=== PATIENT | female | born 1985 | race Caucasian/White ===

== ENCOUNTER 2017-12-30 17:04 | Emergency (ER) | payer SELFPAY ==
[~2017-12-30 17:04] MED LIST: Iopamidol 370 76% 100 ML VIAL ONE
[2017-12-30 17:29] LABS: Bilirubin Small (Negative); Blood, Urine Moderate (Negative); Clarity Cloudy (Clear); Glucose, Urine (Dipstick) Negative (Negative); Leukocyte Negative (Negative); Nitrite Negative (Negative); Protein, Urine (Dipstick) 100 mg/dL (Neg-Trace); pH, Urine 6.5 (5.0-9.0)
[2017-12-30 17:30] LABS: Specific Gravity, Urine Greater than 1.035 (1.002-1.036)
[2017-12-30 17:35] LABS: RBC/HPF 21-50 HPF (0-3)
[2017-12-30 17:36] LABS: Bacteria/HPF 1+ HPF (None Seen); Crystals/HPF 1+ CA OXALATE HPF (Negative); Hyaline Casts/LPF 0-3 HYALINE CAST LPF (0-3 Hyaline)
[2017-12-30] MEDS ORDERED: Ondansetron HCl/PF 4 MG/2 ML Vial ONE (17:58)
[2017-12-30 18:05] LABS: #Basophils 0.1 thou/uL (0.0-0.2); #Eosinphils 0.2 thou/uL (0.0-0.7); #Lymphocytes 2.1 thou/uL (1.20-3.40); #Monocytes 0.4 thou/uL (0.11-0.59); #Neutrophils 5.8 thou/uL (1.40-6.50); %Basophils 1.3 % (0.0-1.0); %Eosinophils 2.7 % (0.0-10.0); %Lymphocytes 23.8 % (21.0-51.0); %Monocytes 4.9 % (0.0-10.0); %Neutrophils 67.3 % (42.0-75.0); Hemoglobin 11.5 g/dL (12.0-16.0); Mean Corpuscular HGB CONC 34.9 g/dL (32.0-36.0); Mean Corpuscular Hemoglobin 29.8 pg (27.0-31.0); Mean Corpuscular Volume 85.5 fl (81.0-99.0); Mean Platelet Volume 7.8 fL (7.4-10.4); Platelet Count 204 thou/uL (130-400); Red Blood Cell (RBC) Count 3.87 mill/uL (4.20-5.40); White Blood Cell (WBC) Count 8.7 thou/uL (4.8-10.8)
[2017-12-30 18:11] LABS: BHCG - Serum Negative (NEGATIVE); Pregs Control Background? CLEAR/WHITE (CLR/WHITE); Pregs Control Bar Appear? YES (CONTROL BAR)
[2017-12-30 18:21] LABS: ALT (SGPT) 23 U/L (8-55); AST (SGOT) 24 U/L (5-34); Albumin 3.9 g/dL (3.5-5.0); Alkaline Phosphatase 100 U/L (40-150); Anion Gap 13 mmol/L (10-20); BUN (Urea Nitrogen) 12 mg/dL (7.0-18.7); Bilirubin, Total 0.2 mg/dL (0.2-1.2); Calc. Creatinine Clearance 0 mL/min (70-130); Calcium 9.1 mg/dL (7.8-10.44); Carbon Dioxide 21 mmol/L (22-29); Chloride 109 mmol/L (98-107); Estimated GFR-MDRD Greater than 90; Globulin 3.2 g/dL (2.4-3.5); Glucose 88 mg/dL (70-105); Lipase 72 U/L (8-78); Potassium 3.3 mmol/L (3.5-5.1); Protein, Total 7.1 g/dL (6.0-8.3); Sodium 140 mmol/L (136-145)
[2017-12-30] MEDS ORDERED: Pot Chloride/Pot Bicarb/Cit Ac 25 mEq Effervescent Tablet ONE (19:17)
[2017-12-30] MEDS ORDERED: Ketorolac Tromethamine 30 MG/ML VIAL ONE (20:26)
--- NOTE | 2017-12-30 21:07 | CT ---
CT ABDOMEN AND PELVIS WITH IV CONTRAST: INDICATIONS: History of left upper quadrant abdominal pain since last night. COMPARISON: 06/27/2014 FINDINGS: The lung bases are clear. The liver and spleen appear within normal limits. The gallbladder is surgically absent. The pancreas and adrenal glands are normal appearing. There is slight prominence of the right renal collecting system and right ureter. No definite ureter al stone is evident. There are scattered small phleboliths within the lower pelvis, which are simila r to a comparison dated 06/18/2015. No definite acute osseous abnormality is evident. IMPRESSION: Mild nonspecific right hydronephrosis and hydroureter without a visible ureteral stone. Findings may reflect a recently passed stone or possibly ascending urinary tract infection. Recommend correlatio n with clinical examination and laboratory evaluation. POS: [facility]
== END 2017-12-30 20:32 | disposition home or self-care (01) ==
LOC: SCSCT 17:04 → SCSER 17:04
DX: R10.12 Left upper quadrant pain (principal); R10.32 Left lower quadrant pain; R31.9 Hematuria, unspecified; K21.9 Gastro-esophageal reflux disease without esophagitis; D64.9 Anemia, unspecified
CPT/HCPCS: 74177; 80053; 81003; 81015; 83605; 83690; 84703; 85025; 87086; 96361; 96365; 96375; J1885; J2405

== ENCOUNTER 2018-11-17 09:29 | Emergency (ER) | payer BC, SELFPAY ==
[2018-11-17] MEDS ORDERED: Iopamidol 370 76% 50 ML VIAL FS ONE (10:00)
[2018-11-17] MEDS ORDERED: ISOVUE-370 76%-LOCM 1 ML ONE (10:00)
[2018-11-17] MEDS ORDERED: HYDROmorphone 0.5 MG/0.5 ML SYRINGE ONE (10:32)
[2018-11-17 10:45] LABS: Bilirubin Negative (Negative); Blood, Urine Small (Negative); Clarity CLEAR (Clear); Glucose, Urine (Dipstick) Negative (Negative); Leukocyte Negative (Negative); Nitrite Negative (Negative); Protein, Urine (Dipstick) Trace mg/dL (Neg-Trace); Specific Gravity, Urine 1.022 (1.002-1.036); Urobilinogen 0.2 mg/dL (0.2-1.0)
[2018-11-17] MEDS ORDERED: Ondansetron PF 4 MG/2 ML Vial ONE (10:47)
[2018-11-17 10:48] LABS: Bacteria/HPF None Seen HPF (None Seen); Hyaline Casts/LPF 4-6 HYALINE CAST LPF (0-3 Hyaline); Pathc Cast-AUWi Flag 0.87 (0-2.49); Squamous Epithelial 0-3 HPF (0-3); WBC/HPF 0-3 HPF (0-3)
--- NOTE | 2018-11-17 12:35 | CT ---
CT ABDOMEN AND PELVIS WITH CONTRAST: HISTORY: Back pain. Nausea and vomiting. COMPARISON: CT abdomen and pelvis from 12/30/2017. FINDINGS: The lung bases are clear. No pericardial effusion. Renal pelvic dilatation, similar to the comparison examination, without dilatation of the ureters. P unctate phleboliths in the pelvis, similar to the prior examination. There is no nephroureterolithia sis. No acute osseous abnormality. There are no dilated loops of large or small bowel. There appears to be a prior colectomy. Prior cholecystectomy. IMPRESSION: No acute inflammatory process within the abdomen or pelvis. POS: [facility]
[2018-11-17] MEDS ORDERED: HYDROcodone/Acetaminophen 10/325 mg Tablet ONE (13:26)
[2018-11-17] MEDS ORDERED: Ketorolac Tromethamine 30 MG/ML VIAL ONE (13:27)
== END 2018-11-17 13:32 | disposition home or self-care (01) ==
LOC: ERS 09:29
DX: R10.9 Unspecified abdominal pain (principal); K21.9 Gastro-esophageal reflux disease without esophagitis; D64.9 Anemia, unspecified; M10.9 Gout, unspecified; F41.9 Anxiety disorder, unspecified
CPT/HCPCS: 74177; 81003; 81015; 96361; 96374; 96375; J1170; J1885; J2405; Q9966; Q9967

== ENCOUNTER 2019-02-11 21:32 | Inpatient (IN) | payer BC, SELFPAY ==
[2019-02-11 22:28] LABS: #Basophils 0.1 thou/uL (0.0-0.2); #Eosinphils 0.3 thou/uL (0.0-0.7); #Lymphocytes 3.4 thou/uL (1.20-3.40); #Monocytes 0.8 thou/uL (0.11-0.59); #Neutrophils 11.8 thou/uL (1.40-6.50); %Basophils 0.8 % (0.0-1.0); %Eosinophils 1.5 % (0.0-10.0); %Lymphocytes 20.9 % (21.0-51.0); %Monocytes 4.7 % (0.0-10.0); %Neutrophils 72.1 % (42.0-75.0); Hemoglobin 13.3 g/dL (12.0-16.0); Mean Corpuscular HGB CONC 34.2 g/dL (32.0-36.0); Mean Corpuscular Hemoglobin 28.3 pg (27.0-31.0); Mean Corpuscular Volume 82.8 fL (78.0-98.0); Mean Platelet Volume 6.3 fL (7.4-10.4); Platelet Count 356 thou/uL (130-400); RBC Distribution Width 14.5 % (11.5-14.5); White Blood Cell (WBC) Count 16.4 thou/uL (4.8-10.8)
[2019-02-11] MEDS ORDERED: Ondansetron PF 4 MG/2 ML Vial ONE (22:37)
[2019-02-11 22:44] LABS: ALT (SGPT) 32 U/L (8-55); AST (SGOT) 19 U/L (5-34); Albumin 4.6 g/dL (3.5-5.0); Alkaline Phosphatase 106 U/L (40-150); Anion Gap 16 mmol/L (10-20); BUN (Urea Nitrogen) 21 mg/dL (7.0-18.7); Bilirubin, Total 0.2 mg/dL (0.2-1.2); Calc. Creatinine Clearance 0 mL/min (70-130); Calcium 10.3 mg/dL (7.8-10.44); Carbon Dioxide 22 mmol/L (22-29); Chloride 103 mmol/L (98-107); Estimated GFR-MDRD 82; Globulin 3.5 g/dL (2.4-3.5); Glucose 106 mg/dL (70-105); Lipase 239 U/L (8-78); Protein, Total 8.1 g/dL (6.0-8.3); Sodium 137 mmol/L (136-145)
[2019-02-11] MEDS ORDERED: Promethazine HCl 25 MG/ML VIAL ONE (22:48)
--- NOTE | 2019-02-11 22:50 | CT ---
CT abdomen and pelvis without IV contrast. Oral contrast was not administered. INDICATIONS: Abdominal pain. History of Crohn's disease COMPARISON: 11/17/2018 FINDINGS: Lung bases are clear Liver, spleen, and pancreas appear unremarkable. Stomach and duodenum appear unremarkable. Adrenal glands appear normal. Kidneys appear unremarkable. Collecting structures and urinary bladder appear unremarkable. Small bowel loops are normal caliber and exhibit normal fold pattern. Patient is post colectomy. Anastomotic changes at the rectum. Mild small bowel distention at the rect um and at the anastomosis. Aorta is normal caliber. No evidence of retroperitoneal or mesenteric adenopathy. Uterus and adnexa unremarkable. Subcutaneous tissues, abdominal wall, and muscular structures appear unremarkable. Osseous structures appear unremarkable. IMPRESSION: Colectomy changes. Mild fluid-filled distention of rectum and distal ileum near the anastomosis. No e vidence of obstruction.
[2019-02-11 22:58] LABS: Bilirubin Negative (Negative); Blood, Urine Small (Negative); Clarity Cloudy (Clear); Glucose, Urine (Dipstick) Negative (Negative); Leukocyte Trace (Negative); Nitrite Negative (Negative); Protein, Urine (Dipstick) 100 mg/dL (Neg-Trace); Specific Gravity, Urine 1.025 (1.005-1.030); Urobilinogen 0.2 mg/dL (0.2-1.0); pH, Urine 6.5 (5.0-9.0)
[2019-02-11 22:59] LABS: Bacteria/HPF 1+ HPF (None Seen); Hyaline Casts/LPF NONE SEEN LPF (0-3 Hyaline); Squamous Epithelial 0-3 HPF (0-3)
[2019-02-12] MEDS ORDERED: Ondansetron PF 4 MG/2 ML Vial IVP PRN (01:20)
[2019-02-12] MEDS ORDERED: Ondansetron ODT 4 MG TAB SL PRN (01:20)
[2019-02-12] MEDS: Dextrose 5 %-0.45 % NaCl 1,000 ML IV SCH ×3 (01:37→22:51)
[2019-02-12] MEDS ORDERED: Acetaminophen 1,000 MG in Premix Bag 1 BAG IVPB SCH (02:15)
[2019-02-12 02:40] VITALS: BMI 24.3
[2019-02-12] MEDS ORDERED: diphenhydrAMINE 50 MG/ML VIAL IVP SCH (02:45)
[2019-02-12] MEDS ORDERED: Fentanyl 100 MCG/2 ML VIAL SLOW IVP PRN (03:45)
[2019-02-12 05:59] LABS: #Basophils 0.1 thou/uL (0.0-0.2); #Eosinphils 0.3 thou/uL (0.0-0.7); #Lymphocytes 2.9 thou/uL (1.20-3.40); #Monocytes 0.7 thou/uL (0.11-0.59); #Neutrophils 8.9 thou/uL (1.40-6.50); %Basophils 0.6 % (0.0-1.0); %Eosinophils 2.6 % (0.0-10.0); %Lymphocytes 22.2 % (21.0-51.0); %Monocytes 5.5 % (0.0-10.0); Hemoglobin 11.6 g/dL (12.0-16.0); Mean Corpuscular HGB CONC 32.7 g/dL (32.0-36.0); Mean Corpuscular Hemoglobin 28.3 pg (27.0-31.0); Mean Corpuscular Volume 86.5 fL (78.0-98.0); Mean Platelet Volume 7.6 fL (7.4-10.4); Platelet Count 277 thou/uL (130-400); RBC Distribution Width 14.8 % (11.5-14.5); White Blood Cell (WBC) Count 12.9 thou/uL (4.8-10.8)
[2019-02-12] MEDS ORDERED: Cephalexin 250 MG CAP PO SCH (06:00)
[2019-02-12 06:14] LABS: Anion Gap 15 mmol/L (10-20); BUN (Urea Nitrogen) 22 mg/dL (7.0-18.7); Calc. Creatinine Clearance 107 mL/min (70-130); Calcium 9.3 mg/dL (7.8-10.44); Carbon Dioxide 20 mmol/L (22-29); Cardiac Risk 3.6 (Less than 4.5); Chloride 105 mmol/L (98-107); Cholesterol 172 mg/dl (< 200 Desired); Estimated GFR-MDRD Greater than 90; Glucose 84 mg/dL (70-105); HDL Cholesterol 48 mg/dL (>60 Neg Risk); LDL Cholesterol, Calculated 80 mg/dL; Potassium 3.7 mmol/L (3.5-5.1); Sodium 136 mmol/L (136-145); Triglycerides 218 mg/dL (Less than 150)
--- NOTE | 2019-02-12 06:23 | HP ---
HISTORY OF PRESENT ILLNESS: Mrs. Dubose is a 33-year-old woman with a known history of Crohn's, who was admitted approximately 1 month ago for Crohn's flare-up. The patient states she does not have any insurance, and therefore, was unable to seek followup after her admission and unable to obtain additional medications. She now returns with a recurring flare-up of her Crohn's. The patient states she has had watery stools for the last 5 days up to 8 times a day. She also reports abdominal discomfort in the left upper quadrant and reports feeling nauseous, but denies any vomiting. The patient denies having any blood in her stools. She was seen at [facility] ER and given Dilaudid for pain, which helped slightly. The patient was also given 1 L of fluids and Phenergan. Her case was discussed with Dr. Mccrary, who said he would assume care tomorrow morning and advise checking stools for C. diff. He also advised starting methylprednisolone 80 mg q.8 hours only if C diff comes back negative. REVIEW OF SYSTEMS: The patient denies having any recent fevers, chills, or sweats. Denies having any headaches or dizziness. Reports having abdominal pain, mainly in the left upper quadrant. States it is a 7 to 8/10 in severity. Has not been significantly relieved with Dilaudid. She states it had improved to 5/10; however, she reports having issues taking morphine in the past as it causes erratic behavior and confusion. Denies having any urinary symptoms. Again, denies having any blood in the stools. All other review of systems negative. PAST MEDICAL HISTORY: 1. Crohn disease. 2. History of small-bowel obstructions. 3. History of bowel strictures and perforated bowel. 4. GERD. 5. Anemia. 6. Kidney stones. 7. Ovarian cyst. 8. Gout. 9. Pancreatitis. 10. Anxiety. PAST SURGICAL HISTORY: 1. Multiple colon surgeries. 2. Four bowel resections. 3. Ileostomy with reversal on January 02, 2015. 4. Cholecystectomy. 5. Tubal ligation. 6. x3. 7. Bilateral oophorectomy. SOCIAL HISTORY: The patient reports drinking alcohol several months ago and only had 2 glasses of wine, which then led to pancreatitis; therefore, she has stopped drinking alcohol together. She reports smoking marijuana. No other drug use. ALLERGIES: MORPHINE CAUSES ERRATIC BEHAVIOR. CURRENT MEDICATIONS: None. PHYSICAL EXAMINATION: GENERAL: The patient appears well-developed, well-nourished, and in no acute distress. VITAL SIGNS: Temperature 98.6, pulse 98, respirations 16, O2 saturation 99% on room air, blood pressure 103/69. HEENT: Normocephalic and atraumatic. Pupils are equal, round, and reactive to light. Sclerae without icterus. Oropharynx is clear. NECK: Supple without lymphadenopathy. LUNGS: Clear to auscultation bilaterally. CARDIAC: Regular rate and rhythm. ABDOMEN: Soft, nondistended, diffuse discomfort with palpation, more prominent in the left upper quadrant. No guarding or rigidity. No renal angle tenderness. SKIN: Without rash or jaundice. NEUROLOGIC: Alert and oriented x3. EXTREMITIES: Lower legs without any edema or swelling. LABORATORY DATA: White blood count 16.4, hemoglobin 13, hematocrit 38.9, platelets 256. Sodium 137, potassium 4, BUN 21, creatinine 0.80, GFR 82, glucose 106, lactic acid 1.4, calcium 10.3, total bilirubin 0.3, AST 19, ALT 32, alkaline phosphatase 106, lipase 239. IMAGING DATA: CT abdomen and pelvis: Colectomy changes. Mild fluid filled distention of the rectum and distal ileum near the anastomosis. No evidence of obstruction. Liver, spleen, and pancreas appear unremarkable. Urinalysis, positive for protein, small blood, trace leukocyte esterase, 7 to 10 white blood cells, . IMPRESSION AND PLAN: Mrs. Dubose is a 33-year-old woman, who is being admitted for management of the following. 1. Crohn's flare. The patient presents with watery stools for the last 5 to 6 days up to 8 times a day. She has a known history of Crohn's. Case discussed with Dr. Mccrary by ED physician and stool cultures including Clostridium difficile testing obtained. If negative, recommendations by Dr. Mccrary are to initiate methylprednisolone 40 mg q.8 hours. He will be seeing her in the morning. The patient has remained n.p.o. 2. Abdominal pain. Minimally relieved with Dilaudid given in the ER. It brought her pain from a 7/10 to 4/10. The patient states relief did not last long. We will try IV acetaminophen 1000 mg x1. If this does not help, we will try fentanyl 25 mcg IV. 3. Gastrointestinal prophylaxis. 4. Deep venous thrombosis prophylaxis with mechanical SCDs. 5. Full code status. Her surrogate decision maker is her , Pee Dubose. 6. Urinary tract infection. The patient was started on Keflex in the ER. She is asymptomatic and it is believed the urinalysis is contaminated that she had a bowel movement . We will hold off on antibiotics. Consider repeat once stools under control with a urine culture. The patient's case was discussed with Dr. Torres, who agrees with plan of care as described above. Job ID: [id number]
[2019-02-12] MEDS: Famotidine/PF 20 mg/2ml Vial SLOW IVP SCH ×2 (07:54→20:40)
[2019-02-12] MEDS: Fentanyl 100 MCG/2 ML VIAL SLOW IVP PRN ×8 (07:55→22:48)
--- NOTE | 2019-02-12 09:22 | PDOC.PN ---
- Subjective Encounter Start Date: 02/12/19 Encounter Start Time: 09:20 Patient lying in bed, she is reporting persistent left sided abdominal pain that radiates to her back. She continues on Cipro for abx and fentanyl for pain control. She denies fever, chills, chest pain or shortness of breath. She states she is nauseous at times which the zofran seems to help. - Objective Resuscitation Status - Order Detail: 02/12/19 02:11 Resuscitation Status Routine Co-Sign Provider: Resuscitation Status: FULL: Full Resuscitation MAR Reviewed: Yes Vital Signs & Weight: Vital Signs (12 hours) Temp Pulse Resp BP Pulse Ox 02/12/19 07:20 97.9 F 72 16 93/63 100 02/12/19 04:00 97.6 F 80 20 94/62 100 02/12/19 01:14 98.6 F 98 16 103/69 99 Weight Weight 137 lb I&O: 02/11/19 02/12/19 02/13/19 06:59 06:59 06:59 Intake Total 5 Balance 5 Result Diagrams: 02/12/19 04:20 02/12/19 04:20 Radiology Reviewed by me: Yes Phys Exam - Physical Examination Mild distress due to pain HEENT: moist MMs, oral pharynx no lesions Neck: supple Respiratory: no wheezing, clear to auscultation bilateral Cardiovascular: RRR, no significant murmur Gastrointestinal: soft, positive bowel sounds diffuse tenderness, more on left side vs right Musculoskeletal: no edema, pulses present Neurological: normal sensation, moves all 4 limbs Lymphatic: no nodes Psychiatric: normal affect, A&O x 3 Skin: no rash, cap refill <2 seconds Dx/Plan (1) UTI (urinary tract infection) Status: Acute (2) Abdominal pain Code(s): R10.9 - UNSPECIFIED ABDOMINAL PAIN Status: Acute (3) Crohn disease Code(s): K50.90 - CROHN'S DISEASE, UNSPECIFIED, WITHOUT COMPLICATIONS Status: Acute - Plan cont current plan of care, continue antibiotics * Continue Cipro for now, await urine culture and stool cultures * If stool cultures negative will plan to start on IV steroids * Continue symptomatic control * GI following and appreciate recommendations * Disposition pending her progress
[2019-02-12 10:11] LABS: CRP (Inflammatory) Less than 0.50 mg/dL (= or < 0.5); Lipase 141 U/L (8-78)
--- NOTE | 2019-02-12 15:10 | PDOC.EVN ---
Event Note - Event Note Event Note: I HAVE PERSONALLY SEEN PT AND REVIEWED CHART AND AGREED WITH PHYSICAL FINDING AND ASSESSMENT OF SENIOR EXAMINER,
[2019-02-12] MEDS: methylPREDNISolone Sod Succ 40 MG VIAL IVP SCH (18:42)
[2019-02-12] MEDS ORDERED: Promethazine 25 MG TAB PO PRN (18:44)
[2019-02-12] MEDS: Ondansetron PF 4 MG/2 ML Vial SLOW IVP PRN (18:56)
[2019-02-12] MEDS: diphenhydrAMINE 50 MG/ML VIAL IVP PRN (22:48)
[2019-02-13] MEDS: methylPREDNISolone Sod Succ 40 MG VIAL IVP SCH ×4 (01:01→18:25)
[2019-02-13] MEDS: Fentanyl 100 MCG/2 ML VIAL SLOW IVP PRN ×10 (01:06→21:40)
[2019-02-13] MEDS: Ondansetron PF 4 MG/2 ML Vial SLOW IVP PRN ×2 (01:10→07:13)
--- NOTE | 2019-02-13 03:37 | CON ---
DATE OF CONSULTATION: 02/12/2019 REASON FOR CONSULTATION: Probable Crohn's flare. CONSULTING PROVIDER: Moses Mendez MD HISTORY OF PRESENT ILLNESS: The patient is a 33-year-old female with past medical history of Crohn disease with multiple colonic resections and ileocolonic anastomosis, anxiety, depression, GERD, nephrolithiasis, gout, and prior bouts of pancreatitis, presenting with complaints of diarrhea and abdominal pain. She states that she was in her usual state of health until approximately 1 to 2 weeks ago, when she began to have increasing left-sided abdominal pain characterized as a burning/cramping-type sensation, was intermittent, nonradiating and would reach a severity of 8/10. This pain was worse with increased physical activity and having a bowel movement, better with physically shaking, not having a bowel movement and administration of pain medications that she has received thus far. This was associated with increased nausea, profound fatigue, and diarrhea characterized as increased watery stools for the last 2 to 3 days, having approximately 10 to 15 smaller volume bowel movements per day during this time. She also endorses any increased intermittent midepigastric abdominal pain that she characterizes as a sharp pain, it will radiate to her back and reaches a severity of 6/10. With the increase in both her midepigastric and left upper quadrant abdominal pain, it prompted her to seek healthcare assistance in the [facility] ER, where she had laboratory findings and imaging findings consistent with acute pancreatitis as well as a probable Crohn's flare. She was ultimately transferred to [facility] for further evaluation and management. Thus far, she has had infectious stool workup that has been negative, and she was ultimately placed on IV steroids in relation to a probable Crohn's flare as well as n.p.o. status and IV fluids in regard to her pancreatitis. Of note, the patient was initially diagnosed with Crohn disease when she was around 12 years old with presenting symptoms at that time being increased left lower quadrant abdominal pain, nausea, vomiting, diarrhea, and increased left lower back pain. She was diagnosed with appendicitis and ultimately underwent an appendectomy, which did not relieve her symptoms. She was also diagnosed with gallbladder disease and ultimately underwent cholecystectomy, again with no relief of symptoms. At that point, she underwent an extensive workup to include upper endoscopy, colonoscopy, and multiple imaging modalities with unclear diagnosis made from the studies. However, in the early 1999, she did have a small-bowel obstruction that required surgical intervention and presumably the diagnosis of Crohn disease was confirmed at that time, given the pathology specimen removed. Since that time, she has had 5 different episodes of small-bowel obstruction that had required resection in addition to hemicolectomy and an ileocolonic reanastomosis. She was initially placed on prednisone, mesalamine, and azathioprine as part of treatment for Crohn disease in early 1999 with decent response to this treatment regimen. However, after approximately 1 year after taking these medications, she began to intermittently dose herself and ultimately stopped these medications due to improvement in her status and felt that she no longer needed these medications. However, with discontinuation of these medications, she has continued to have flares over the years, having approximately 2 to 3 flares per year. She was ultimately seen by GI physician around 2008 and placed on Remicade, for which she had a significant improvement in her symptoms and had no flares during that time period while she was on it, but after a year, this medication was discontinued for unknown reasons. Since that time, she has had multiple hospitalizations, requiring the use of IV and oral steroids and has not been placed on any sort of maintenance-type therapy. Currently, she is unfunded and has been unable to follow up with any sort of regular physician and/or GI physician for management of this Crohn disease. REVIEW OF SYSTEMS: A 10-category review of systems was obtained with all responses negative except for the pertinent positives as listed in HPI. PAST MEDICAL HISTORY: As per HPI. PAST SURGICAL HISTORY: Multiple colon surgeries, 4 bowel resections, resulting in ileostomy and an ileocolonic reanastomosis; cholecystectomy; bilateral tubal ligation; x3; and bilateral oophorectomy. FAMILY HISTORY: Denies any GI malignancies. SOCIAL HISTORY: She endorses rare use of alcohol, but denies any tobacco abuse. She does admit to smoking marijuana, but no other illicit drug use. CURRENT MEDICATIONS: None. ALLERGIES: MORPHINE. PHYSICAL EXAMINATION: VITAL SIGNS: Temperature 98.1, pulse 86, blood pressure 103/69, respiratory rate 20, and saturating 98% on room air. GENERAL: The patient was lying in bed, in no acute distress. Alert and oriented x4. HEENT: Normocephalic and atraumatic. No scleral icterus or JVD noted. CARDIOVASCULAR: Regular rate and rhythm with no discernible murmurs, gallops, or rubs. RESPIRATORY: Clear to auscultation bilaterally with no discernible wheezes or rales. ABDOMEN: Hypoactive bowel sounds. Soft and nondistended. Tenderness to palpation in the midepigastric, periumbilical, and left flank/left lower quadrant. EXTREMITIES: No cyanosis, clubbing, or edema. LABORATORY DATA: CBC with a white blood cell count of 12.9, hemoglobin of 11.6, hematocrit 35.5, and platelets 277. Chemistry with a sodium of 136, potassium 3.7, chloride 105, CO2 of 20, BUN 22, creatinine 0.72, and glucose 84. AST 19, ALT 32, alkaline phosphatase 106, and total bilirubin 0.2, and albumin 4.6. Urinalysis consistent with urinary tract infection. IMAGING DATA: CT of the abdomen and pelvis obtained on February 11, 2019, showed surgical change consistent with colectomy with anastomotic change in the rectum concerning for ileocolonic anastomosis. Small bowel distention was present at this anastomotic region. Otherwise, there were no other abnormalities. ASSESSMENT AND PLAN: The patient is a 33-year-old female with past medical history of gastroesophageal reflux disease, nephrolithiasis, gout, pancreatitis, anxiety, depression, and Crohn disease with multiple colonic resections and multiple small bowel resections, presenting with increased midepigastric abdominal pain, diarrhea, and labs and imaging consistent with acute recurrent pancreatitis and a probable Crohn's disease flare. Crohn's disease flare. The patient is presenting with a return of increased left-sided abdominal pain and diarrhea that is similar to prior Crohn disease flares in the past. This pain is characterized as a burning/cramping-type pain, intermittent, is nonradiating, but will reach a severity of 8/10. It is currently only moderately controlled with opiate medications (the patient prefers Dilaudid as her pain medication of choice). At this time, she has had infectious stool studies that were negative for obvious pathogen, although her fecal lactoferrin is high consistent with Crohn's disease flare. At this time, the origin of her Crohn's disease flares could be multifactorial in that she has not been on any maintenance medications for control of this disease as an outpatient in addition to her marijuana use, which could further cause exacerbation of her Crohn disease. At this time, the biggest barrier for clinical remission is her unfunded status and need for followup as an outpatient. RECOMMENDATIONS: 1. Agree with placing the patient on methylprednisolone 40 mg q.6 given negative infectious stool studies and probable Crohn disease flare. 2. We would recommend placement of the patient on a calcium supplement to prevent against further episodes of nephrolithiasis in a patient with small-bowel Crohn disease. 3. Strongly encouraged marijuana cessation as it can cause exacerbation of her Crohn disease. 4. Ultimately, the patient will be needed to be followed up as an outpatient and transferring to maintenance-type medication including immunomodulators and/or biologics for treatment of her Crohn disease. 5. Pancreatitis: The patient is presenting with acute onset of midepigastric abdominal pain characterized as a sharp pain and radiating straight to her mid-back and consistent with her prior bouts of pancreatitis in the past. At this point, the etiology of her pancreatitis is largely unknown, although could be caused by chronic marijuana use given that her alcohol consumption is minimal with the last drink being approximately 1 month ago. Triglycerides have come back negative for the possibility of hypertriglyceridemia and imaging studies do not show any significant peripancreatic stranding, although her serum lipase levels are consistent with a diagnosis of acute pancreatitis. 6. We would continue the patient on n.p.o. status for at least the next 24 hours and to re-evaluate the patient daily in attempts to advance her diet. 7. We would continue IV fluid administration, but would increase to 150 mL per hour over the next 8 hours given her mild pancreatitis. 8. Pain control per primary team. We will continue to follow. Dr. Ponce will be on-call over the weekend and any further questions should be directed toward him. Please call with any questions. Job ID: [id number]
[2019-02-13] MEDS: Famotidine/PF 20 mg/2ml Vial SLOW IVP SCH ×2 (09:38→21:37)
[2019-02-13 11:29] LABS: #Monocytes 0.1 thou/uL (0.11-0.59); #Neutrophils 15.6 thou/uL (1.40-6.50); %Basophils 0.1 % (0.0-1.0); %Eosinophils 0.2 % (0.0-10.0); %Lymphocytes 5.8 % (21.0-51.0); %Monocytes 0.7 % (0.0-10.0); %Neutrophils 93.2 % (42.0-75.0); Hemoglobin 12.7 g/dL (12.0-16.0); Mean Corpuscular Hemoglobin 28.2 pg (27.0-31.0); Mean Corpuscular Volume 85.2 fL (78.0-98.0); Mean Platelet Volume 6.9 fL (7.4-10.4); Platelet Count 325 thou/uL (130-400); RBC Distribution Width 14.4 % (11.5-14.5); White Blood Cell (WBC) Count 16.8 thou/uL (4.8-10.8)
[2019-02-13 11:48] LABS: Anion Gap 16 mmol/L (10-20); BUN (Urea Nitrogen) 10 mg/dL (7.0-18.7); Calc. Creatinine Clearance 107 mL/min (70-130); Calcium 9.8 mg/dL (7.8-10.44); Carbon Dioxide 17 mmol/L (22-29); Chloride 105 mmol/L (98-107); Estimated GFR-MDRD Greater than 90; Glucose 120 mg/dL (70-105); Potassium 3.9 mmol/L (3.5-5.1); Sodium 134 mmol/L (136-145)
[2019-02-13] MEDS: Dextrose 5 % And 0.9 % NaCl 1,000 ML IV SCH (14:01)
[2019-02-13] MEDS: Metoclopramide HCl 10 MG/2 ML VIAL IVP PRN (14:02)
--- NOTE | 2019-02-13 16:30 | PRG ---
DATE OF SERVICE: 02/13/2019 SUBJECTIVE: Ms. Dubose says she is feeling a lot better today after having received Reglan and Bentyl earlier today. She has regained some appetite and is feeling hungry. There is no nausea. Abdominal discomfort persists in the left lower quadrant, but is improved from earlier. She has remained hemodynamically stable. OBJECTIVE: VITAL SIGNS: Temperature 98.3, pulse 80, blood pressure 102/69, and 98% oxygen saturation on room air. GENERAL: No acute distress. HEART: Regular rate and rhythm. LUNGS: Clear to auscultation bilaterally. ABDOMEN: Bowel sounds present. Soft. Some tenderness to palpation in the left abdomen. No guarding or rebound tenderness. EXTREMITIES: No peripheral edema. LABORATORY STUDIES: Sodium 134, potassium 3.9, BUN 10, creatinine 0.72, calcium 9.8. CRP is less than 0.5. Lipase 141. LFTs all normal. WBC 16.8, hemoglobin 12.7, hematocrit 38.3, platelets 325. ASSESSMENT AND PLAN: 1. Crohn disease flare. 2. Lipase elevation, possible mild pancreatitis. In my opinion, the patient's presentation more likely represents Crohn disease flare rather than acute pancreatitis. There was no pancreatic stranding seen on imaging. Lipase elevation is mild. The patient is feeling hungry. Her CRP is normal. I think we can advance her to a clear liquid diet tonight. If she has good night and is feeling okay tomorrow morning, further advance the diet as tolerated. Continue to treat as Crohn flare with IV methylprednisolone. Upon hospital discharge, I would probably send her out with a short tapering course of prednisone, 40 mg daily for 3 days, then 30 mg daily for 3 days, then 20 mg daily for 3 days, then 10 mg daily for 3 days, then off. Hopefully, she will be able to follow up with Dr. Mccrary on an outpatient basis to get on maintenance Crohn therapy. She can also take dicyclomine on a p.r.n. basis and says she actually has some of that at home. No barriers to hospital discharge on prednisone taper as outlined tomorrow, if she is able to advance her diet and symptoms continue to improve. Job ID: [id number]
--- NOTE | 2019-02-13 16:40 | PDOC.PN ---
- Subjective Encounter Start Date: 02/13/19 Encounter Start Time: 16:39 Patient lying in bed earlier today, she was complaining of worsening cramping of her abdomen and nausea. She denies chest pain, or palpitations. She states she has bentyl at home, but was not receiving it here. She states she was hungry last night, but today due to pain she does not want to think about food. - Objective Resuscitation Status - Order Detail: 02/12/19 02:11 Resuscitation Status Routine Co-Sign Provider: Resuscitation Status: FULL: Full Resuscitation MAR Reviewed: Yes Vital Signs & Weight: Vital Signs (12 hours) Temp Pulse Resp BP Pulse Ox 02/13/19 11:00 98.3 F 80 14 102/69 98 02/13/19 09:00 98.1 F 72 16 114/77 98 02/13/19 07:24 98.1 F 72 16 114/77 98 Weight Weight 137 lb I&O: 02/12/19 02/13/19 02/14/19 06:59 06:59 06:59 Intake Total 107 865 Balance 107 865 Result Diagrams: 02/13/19 11:23 02/13/19 11:23 Radiology Reviewed by me: Yes Phys Exam - Physical Examination Mild distress due to pain HEENT: oral pharynx no lesions Neck: supple Respiratory: no wheezing, no rales Cardiovascular: RRR, no significant murmur Gastrointestinal: soft, positive bowel sounds Tenderness to palpation on left side Musculoskeletal: no edema, pulses present Neurological: normal sensation, moves all 4 limbs Lymphatic: no nodes Psychiatric: A&O x 3 Deviation from normal: Tearful at times Skin: cap refill <2 seconds Dx/Plan (1) Crohn disease Code(s): K50.90 - CROHN'S DISEASE, UNSPECIFIED, WITHOUT COMPLICATIONS Status: Acute (2) UTI (urinary tract infection) Status: Acute (3) Abdominal pain Code(s): R10.9 - UNSPECIFIED ABDOMINAL PAIN Status: Acute - Plan cont current plan of care, continue antibiotics * Continue symptomatic control * IV solumedrol q6h, with plan to transition to prednisone taper upon discharge 40mg for 3 days, 30mg for 3 days, 20mg for 3 days then 10mg for 3 days before stopping * Cipro for UTI, await final culture results * Leukocytosis likely secondary to steroids * Started on Bentyl and reglan today, seemed to improve symptoms * GI following and Dr Ponce feels patient may be started on liquid diet tonight. * She is making slow progression * Since patient making slow progress and likely be here more than 48 hours, will transition to inpatient
[2019-02-13] MEDS: diphenhydrAMINE 50 MG/ML VIAL IVP PRN (21:37)
[2019-02-14] MEDS: Fentanyl 100 MCG/2 ML VIAL SLOW IVP PRN ×7 (00:09→13:22)
[2019-02-14] MEDS: methylPREDNISolone Sod Succ 40 MG VIAL IVP SCH ×3 (00:09→11:13)
[2019-02-14] MEDS: diphenhydrAMINE 50 MG/ML VIAL IVP PRN (01:41)
[2019-02-14] MEDS: Dextrose 5 % And 0.9 % NaCl 1,000 ML IV SCH (01:46)
[2019-02-14] MEDS: Ondansetron PF 4 MG/2 ML Vial SLOW IVP PRN (04:18)
[2019-02-14] MEDS: Metoclopramide HCl 10 MG/2 ML VIAL IVP PRN (04:18)
[2019-02-14] MEDS: Dicyclomine 10 MG CAP PO PRN ×2 (04:24→12:31)
[2019-02-14] MEDS: Famotidine/PF 20 mg/2ml Vial SLOW IVP SCH (08:42)
--- NOTE | 2019-02-14 10:18 | PRG ---
DATE OF SERVICE: 02/14/2019 SUBJECTIVE: Ms. Dubose says she is feeling a lot better this morning. Abdominal pain is significantly declined. No nausea. No vomiting. She has been tolerating full liquid diet without any issues. She is feeling more hungry and she is also hoping to be able to go home today. OBJECTIVE: VITAL SIGNS: Temperature 98.1, pulse 80, blood pressure 108/70, and 98% oxygen saturation on room air. GENERAL: In no acute distress. HEART: Regular rate and rhythm. LUNGS: Clear to auscultation bilaterally. ABDOMEN: Bowel sounds present. Soft and nontender to palpation. EXTREMITIES: No peripheral edema. LABORATORY STUDIES: No new labs from this morning. ASSESSMENT AND PLAN: 1. Crohn disease flare, clinically improved. 2. Mild lipase elevation, possible mild pancreatitis, now clinically resolved. The patient is doing quite a bit better symptomatically after 2 days of IV steroids. I would recommend advancing her diet to solid food this morning. If she does well with this, then I think she could be discharged from the hospital later today, on a prednisone taper as outlined in my note from yesterday. She can also continue to take dicyclomine p.r.n. Plan for her to follow up with Dr. Mccrary in the outpatient GI Clinic in the next couple of weeks. Job ID: [id number]
--- NOTE | 2019-02-14 10:56 | PDOC.PN ---
- Subjective Encounter Start Date: 02/14/19 Encounter Start Time: 09:00 -: old records requested/rev Patient seen and examined. No new complaints. No overnight events - Objective Resuscitation Status - Order Detail: 02/12/19 02:11 Resuscitation Status Routine Co-Sign Provider: Resuscitation Status: FULL: Full Resuscitation MAR Reviewed: Yes Vital Signs & Weight: Vital Signs (12 hours) Temp Pulse Resp BP Pulse Ox 02/14/19 07:00 98.1 F 80 16 108/70 98 02/14/19 04:00 98.1 F 68 16 93/60 100 02/14/19 00:00 98.8 F 75 16 102/68 97 Weight Weight 137 lb I&O: 02/13/19 02/14/19 02/15/19 06:59 06:59 06:59 Intake Total 107 865 Balance 107 865 Result Diagrams: 02/13/19 11:23 02/13/19 11:23 Phys Exam - Physical Examination Constitutional: NAD HEENT: PERRLA, moist MMs, sclera anicteric Neck: no JVD, supple Respiratory: no wheezing, no rales, no rhonchi Cardiovascular: RRR, no significant murmur, no rub Gastrointestinal: soft, non-tender, no distention, positive bowel sounds Musculoskeletal: no edema, pulses present Neurological: non-focal, normal sensation Lymphatic: no nodes Psychiatric: normal affect, A&O x 3 Skin: no rash, normal turgor Dx/Plan (1) Abdominal pain Code(s): R10.9 - UNSPECIFIED ABDOMINAL PAIN Status: Acute (2) UTI (urinary tract infection) Status: Acute (3) Crohn disease Code(s): K50.90 - CROHN'S DISEASE, UNSPECIFIED, WITHOUT COMPLICATIONS Status: Acute - Plan cont current plan of care * advance diet * if tolerate well, will consider DC * prednisone taper as per GI * medication reviewed as below * symptomatic treatment. Review of Systems - Review of Systems ENT: negative: Ear Pain, Ear Discharge, Nose Pain, Nose Discharge, Nose Congestion, Mouth Pain, Mouth Swelling, Throat Pain, Throat Swelling, Other Respiratory: negative: Cough, Dry, Shortness of Breath, Hemoptysis, SOB with Excertion, Pleuritic Pain, Sputum, Wheezing Cardiovascular: negative: chest pain, palpitations, orthopnea, paroxysmal nocturnal dyspnea, edema, light headedness, other Gastrointestinal: negative: Nausea, Vomiting, Abdominal Pain, Diarrhea, Constipation, Melena, Hematochezia, Other Genitourinary: negative: Dysuria, Frequency, Incontinence, Hematuria, Retention , Other Musculoskeletal: negative: Neck Pain, Shoulder Pain, Arm Pain, Back Pain, Hand Pain, Leg Pain, Foot Pain, Other Skin: negative: Rash, Lesions, Logan, Bruising, Other - Medications/Allergies Allergies/Adverse Reactions: Allergies Allergy/AdvReac Type Severity Reaction Status Date / Time morphine Allergy Anxiety Verified 01/07/14 10:38 Medications: Current Medications Dicyclomine HCl (Bentyl) 10 mg PO Q6H PRN PRN Reason: Abdominal PAIN Last Admin: 02/14/19 04:24 Dose: 10 mg Dicyclomine HCl (Bentyl) 10 mg IM Q6H PRN PRN Reason: GI Cramping Diphenhydramine HCl (Benadryl) 25 mg IVP HS PRN PRN Reason: Insomnia Last Admin: 02/14/19 01:41 Dose: 25 mg Famotidine (Pepcid) 20 mg SLOW IVP Q12HR EAN Last Admin: 02/14/19 08:42 Dose: 20 mg Fentanyl (Sublimaze) 50 mcg SLOW IVP Q2H PRN PRN Reason: Pain Last Admin: 02/14/19 08:43 Dose: 50 mcg Ciprofloxacin/Dextrose 400 mg/ (Device) 200 mls @ 200 mls/hr IVPB Q12HR EAN Last Admin: 02/14/19 08:42 Dose: 200 mls Dextrose/Sodium Chloride (D5 0.9% Ns) 1,000 mls @ 75 mls/hr IV .[id number] [facility] Last Admin: 02/14/19 01:46 Dose: 1,000 mls Methylprednisolone Sodium Succinate (Solu-Medrol) 40 mg IVP Q6HR EAN Last Admin: 02/14/19 04:32 Dose: 40 mg Metoclopramide HCl (Reglan) 10 mg IVP Q6H PRN PRN Reason: Nausea/Vomiting Last Admin: 02/14/19 04:18 Dose: 10 mg Ondansetron HCl (Zofran) 4 mg SLOW IVP Q6H PRN PRN Reason: Nausea Last Admin: 02/14/19 04:18 Dose: 4 mg Promethazine HCl (Phenergan) 25 mg PO Q6H PRN PRN Reason: Nausea Sodium Chloride (Flush - Normal Saline) 10 ml IVF Q12HR PRN PRN Reason: Saline Flush
--- NOTE | 2019-02-14 12:00 | DIS ---
DATE OF ADMISSION: 02/13/2019 DATE OF DISCHARGE: 02/14/2019 PRIMARY CARE PHYSICIAN: Crystal Call admission. DISCHARGE DISPOSITION: Home. PRIMARY DISCHARGE DIAGNOSES: 1. Crohn's flare up. 2. Urinary tract infection. SECONDARY DISCHARGE DIAGNOSIS: Crohn's disease. PRIMARY PROCEDURE/OPERATION: None. RADIOLOGICAL INVESTIGATION: Abdomen and pelvis CT scan was unremarkable. SIGNIFICANT LABORATORY DATA: WBC 16.8, hemoglobin 12.7, platelets 325. Sodium 134, potassium 3.9, creatinine 0.72, LDL 80, CRP less than 0.50. LFT normal. Lipase 141. Urinalysis suggestive of UTI. Stool for infection workup came back negative. DISCHARGE MEDICATIONS: 1. Cipro 500 mg p.o. b.i.d. for 5 days. 2. Landenberg 10 one tablet q.6 hourly p.r.n. for pain. 3. Prednisone 40 mg p.o. daily for 3 days, then 30 mg p.o. daily for 3 days, then 20 mg p.o. daily for 3 days, and then 10 mg p.o. daily for 3 days. 4. Bentyl 10 mg q.6 hourly p.r.n. for GI cramping. CONTRAINDICATION: None. CODE STATUS: Full code. INPATIENT CONSULTANTS: Dr. Mickey Mccrary and Dr. Ponce were following while in hospital. TEST RESULTS PENDING ON DISCHARGE: None. ALLERGIES: MORPHINE. DISCHARGE PLAN: Posthospital, the patient will follow up with primary care physician and multi operation machine operator as instructed. HOSPITAL COURSE: A 33-year-old female who has Crohn's disease and she came to emergency room with acute abdominal pain, which was diffuse. Her lipase was slightly elevated and that is why there was concern of underlying pancreatitis. Her CT of abdomen and pelvis was negative for any acute process. She was kept n.p.o. and subsequently her pain was improved. At that point, we advanced her diet to a regular diet. She was tolerating very well. It seems like the patient's lipase was elevated, but clinically she may not have acute pancreatitis as per GI recommendation, so we suspected Crohn's flare up and the patient had clinical improvement after starting Solu-Medrol. On discharge, we changed to tapering doses of prednisone. While in hospital, we also treated her for UTI with Cipro, and on discharge, she will continue Cipro for 5 more days. Overall, the patient is doing much better and she is pretty much comfortable to go home if she tolerates her diet. GI also concurs with their recommendation that if the patient tolerates diet, then she will be able to go home later on today with outpatient followup. The patient is seen and examined at bedside today. Please see my progress note today for further detail. Job ID: [id number]
[2019-02-14 12:16] VITALS: BP 101/65; TEMP 98.3
== END 2019-02-14 13:42 | disposition home or self-care (01) | DRG 386 ==
LOC: SCSER 21:32 → SURG A 02-12 00:51 → OBSVTOIN 02-13 14:03
PROVIDERS: ADMIT Internal Medicine; ATTEND Internal Medicine
DX: K50.90 Crohn's disease, unspecified, without complications (principal); N39.0 Urinary tract infection, site not specified; K21.9 Gastro-esophageal reflux disease without esophagitis; D64.9 Anemia, unspecified; M10.9 Gout, unspecified; F41.9 Anxiety disorder, unspecified; F12.90 Cannabis use, unspecified, uncomplicated; T38.0X5A Adverse effect of glucocorticoids and synthetic analogues, initial encounter; D72.829 Elevated white blood cell count, unspecified; R74.8 Abnormal levels of other serum enzymes; Z90.49 Acquired absence of other specified parts of digestive tract; Z88.5 Allergy status to narcotic agent; Z98.51 Tubal ligation status
CPT/HCPCS: 36415; 74176; 80048; 80053; 80061; 81003; 81015; 82274; 83605; 83630; 83690; 85025; 86140; 87045; 87046; 87086; 87324; 87449; 87899; 96361; 96365; 96366; 96375; 96376; J0131; J0500; J0744; J1170; J1200; J2405; J2550; J2765; J2920; J3010; S0028

== ENCOUNTER 2019-02-18 11:00 | Observation (INO) | payer SELFPAY ==
[2019-02-18 11:56] LABS: #Eosinphils 0.3 thou/uL (0.0-0.7); #Lymphocytes 2.8 thou/uL (1.20-3.40); #Monocytes 0.6 thou/uL (0.11-0.59); #Neutrophils 12.4 thou/uL (1.40-6.50); %Basophils 0.3 % (0.0-1.0); %Eosinophils 2.1 % (0.0-10.0); %Lymphocytes 17.4 % (21.0-51.0); %Monocytes 3.5 % (0.0-10.0); %Neutrophils 76.7 % (42.0-75.0); Mean Corpuscular HGB CONC 32.4 g/dL (32.0-36.0); Mean Corpuscular Hemoglobin 28.1 pg (27.0-31.0); Mean Corpuscular Volume 86.6 fL (78.0-98.0); Mean Platelet Volume 7.2 fL (7.4-10.4); Platelet Count 317 thou/uL (130-400); RBC Distribution Width 15.1 % (11.5-14.5); Red Blood Cell (RBC) Count 4.62 mill/uL (4.20-5.40); White Blood Cell (WBC) Count 16.1 thou/uL (4.8-10.8)
[2019-02-18] MEDS ORDERED: Ondansetron PF 4 MG/2 ML Vial ONE (12:01)
[2019-02-18] MEDS ORDERED: Fentanyl 100 MCG/2 ML VIAL ONE ×3 (12:01→16:14)
[2019-02-18 12:22] LABS: ALT (SGPT) 27 U/L (8-55); AST (SGOT) 17 U/L (5-34); Albumin 4.5 g/dL (3.5-5.0); Alkaline Phosphatase 109 U/L (40-150); Anion Gap 14 mmol/L (10-20); BUN (Urea Nitrogen) 11 mg/dL (7.0-18.7); Bilirubin, Total 0.2 mg/dL (0.2-1.2); Calc. Creatinine Clearance 0 mL/min (70-130); Carbon Dioxide 25 mmol/L (22-29); Chloride 105 mmol/L (98-107); Estimated GFR-MDRD Greater than 90; Globulin 3.3 g/dL (2.4-3.5); Glucose 83 mg/dL (70-105); Lipase 143 U/L (8-78); Potassium 3.7 mmol/L (3.5-5.1); Protein, Total 7.8 g/dL (6.0-8.3); Sodium 140 mmol/L (136-145)
[2019-02-18] MEDS ORDERED: Metoclopramide HCl 10 MG/2 ML VIAL ONE (12:50)
[2019-02-18 16:10] LABS: Bilirubin Negative (Negative); Blood, Urine Trace (Negative); Clarity CLEAR (Clear); Glucose, Urine (Dipstick) Negative (Negative); Leukocyte Negative (Negative); Nitrite Negative (Negative); Protein, Urine (Dipstick) Negative (Neg-Trace); Urobilinogen 0.2 mg/dL (0.2-1.0)
[2019-02-18 16:12] LABS: Bacteria/HPF None Seen HPF (None Seen); Hyaline Casts/LPF 0-3 HYALINE CAST LPF (0-3 Hyaline); Pathc Cast-AUWi Flag 0.68 (0-2.49); RBC/HPF 0-3 HPF (0-3); Squamous Epithelial 0-3 HPF (0-3); WBC/HPF 0-3 HPF (0-3)
[2019-02-18] MEDS ORDERED: Sodium Chloride 0.9% 1,000 ML IV SCH (18:09)
[2019-02-18] MEDS ORDERED: Ondansetron PF 4 MG/2 ML Vial IVP PRN ×2 (18:09→18:51)
[2019-02-18] MEDS ORDERED: Fentanyl 100 MCG/2 ML VIAL SLOW IVP PRN (18:09)
[2019-02-18] MEDS ORDERED: Metoclopramide HCl 10 MG/2 ML VIAL IVP PRN (18:09)
[2019-02-18] MEDS ORDERED: Senokot S 8.6-50 MG TAB PO PRN (18:51)
[2019-02-18] MEDS ORDERED: Acetaminophen 325 MG TAB PO PRN (18:51)
[2019-02-18] MEDS ORDERED: Acetaminophen 650 MG Suppository PR PRN (18:51)
[2019-02-18] MEDS ORDERED: Guaifenesin DM 100-10/5 ML UDCUP PO PRN (18:51)
[2019-02-18] MEDS ORDERED: Bacteriostatic Water 30 ML VIAL FS PRN (18:58)
[2019-02-18] MEDS: Fentanyl 100 MCG/2 ML VIAL SLOW IVP PRN ×2 (20:06→22:10)
[2019-02-18] MEDS: Dicyclomine 10 MG CAP PO PRN (20:09)
[2019-02-18 20:14] VITALS: BMI 23.9
[2019-02-18] MEDS ORDERED: Prevnar 13-Val Conj/PF 0.5 ML SYRINGE IM ONE (20:30)
--- NOTE | 2019-02-18 21:22 | CON ---
DATE OF CONSULTATION: 02/18/2019 REASON FOR CONSULTATION: Abdominal pain. HISTORY OF PRESENT ILLNESS: Selam Dubose is a 33-year-old woman, patient of my GI colleague, Dr. Mickey Mccrary. Her past history is very well outlined in his recent consult note from 02/12/2019. Briefly, she has a long history of Crohn disease with multiple abdominal surgeries including partial colectomy and partial small bowel resection during her teenage years. At one point, she was on mesalamine and azathioprine, but quit these on her own in the early , then in 2008 she was on Remicade for about a year, but discontinued it on her own as well. She has been on no maintenance therapy for the past 10 years and has had multiple hospitalizations for partial small bowel obstructions always resolving on their own. She was recently hospitalized here for several days, discharged 4 days ago on an oral prednisone taper as well as dicyclomine. During that recent hospitalization, she did have lipase elevation to 239 with normal LFTs and so it was thought that she had pancreatitis, so she was treated for pancreatitis as well as Crohn flare. She tells me that she was doing well after hospital discharge for a couple of days, but then yesterday morning she started having recurrence of severe pain in the epigastrium. This is essentially constant, but waxing and waning. It is much worse just before a bowel movement and just after bowel movement, it is also worse with eating. She has been constantly nauseated. She had one episode of emesis earlier today. Because of the escalating pain and feeling like she could not keep anything down, this prompted her presentation. She also reports diarrhea is still ongoing. There is no melena or hematochezia, but she is having 10 or more bowel movements in the day. Upon presentation here, her vital signs are all stable. Laboratories show continued elevation in lipase, currently at 143, but favorable metabolic profile. She is requesting more fentanyl. PAST MEDICAL HISTORY: 1. Crohn disease, status post multiple partial small bowel resection due to stricturing disease. 2. GERD. 3. Anemia. 4. Kidney stones. 5. Ovarian cyst. 6. Gout. 7. Anxiety. 8. Pancreatitis. 9. Ileostomy with reversal, January 02, 2015. 10. Cholecystectomy. 11. Tubal ligation. 12. x3. SOCIAL HISTORY: The patient stopped drinking alcohol over the past several months. She does smoke marijuana. No other drug use. ALLERGIES: MORPHINE CAUSES ERRATIC BEHAVIOR. OUTPATIENT MEDICATIONS: The patient was recently discharged from the hospital with 1. [place] 10 mg q.6 hours p.r.n. 2. Prednisone 40 mg daily, plan to 20-day taper. 3. Bentyl 10 mg q.6 hours p.r.n. 4. Ciprofloxacin 500 mg p.o. b.i.d. (the patient never filled this or took it). FAMILY HISTORY: Negative for GI malignancy. PHYSICAL EXAMINATION: VITAL SIGNS: Pulse 80, blood pressure 99/63, 99% oxygen saturation on room air. GENERAL: A 33-year-old woman, sitting up in bed, in mild distress from abdominal pain. Appears nontoxic. SKIN: No jaundice. No rashes are palpable. She has multiple tattoos. EYES: No scleral icterus. Extraocular movements intact. ENT: Mucous membranes moist. No oral lesions. LYMPH: No submandibular or supraclavicular lymphadenopathy. THYROID: Nontender to palpation. HEART: Regular rate and rhythm. LUNGS: Clear to auscultation bilaterally. ABDOMEN: Bowel sounds are present in all 4 quadrants. Abdomen is soft, very tender to palpation in the epigastrium, but no guarding or rebound tenderness. EXTREMITIES: No peripheral edema. VESSELS: Radial pulses 2+ bilaterally. NEURO: Cranial nerves 2 through 12 intact bilaterally. No focal deficits. LABORATORY STUDIES: WBC elevated to 16.1, hemoglobin 13.0, platelets 317. Sodium 140, potassium 3.7, BUN 11, creatinine 0.71, total bilirubin 0.2, alkaline phosphatase 109, AST 17, ALT 27, albumin 4.5. Lipase remains elevated to 143, which is about twice the upper limit of normal for this lab. ASSESSMENT/PLAN: Pancreatitis, recurrent. The patient's pain symptoms themselves seem consistent with recurrent pancreatitis. If this is the primary etiology of her symptoms, then certainly the laboratory parameters are all favorable. She does have this underlying Crohn disease and ongoing diarrhea, but it is unclear how much of the pain is related to Crohn flare versus pancreatitis versus frankly pain seeking behavior. At this point, I would treat both for acute pancreatitis and treat as Crohn flare. We will have the patient on n.p.o. status with IV fluid and pain and nausea control as needed. But I would also treat for Crohn flare, go ahead and restart IV steroids with IV Solu-Medrol 40 mg q.6 hours. Monitor labs including lipase daily. No plan for any endoscopy at this time. Job ID: [id number]
[2019-02-18] MEDS: Metoclopramide HCl 10 MG/2 ML VIAL IVP PRN (22:04)
[2019-02-18] MEDS: Famotidine 20 MG TAB PO SCH (22:14)
[2019-02-18] MEDS: methylPREDNISolone Sod Succ 40 MG VIAL IVP SCH (23:38)
[2019-02-18] MEDS: Sodium Chloride 0.45% 1,000 ML IV SCH (23:38)
[2019-02-19] MEDS: Fentanyl 100 MCG/2 ML VIAL SLOW IVP PRN ×9 (00:20→22:28)
[2019-02-19] MEDS: Sodium Chloride 0.45% 1,000 ML IV SCH ×2 (02:48→15:50)
[2019-02-19] MEDS: methylPREDNISolone Sod Succ 40 MG VIAL IVP SCH ×3 (05:51→19:00)
[2019-02-19 06:06] LABS: #Lymphocytes 1.1 thou/uL (1.20-3.40); #Monocytes 0.1 thou/uL (0.11-0.59); #Neutrophils 11.8 thou/uL (1.40-6.50); %Eosinophils 0.4 % (0.0-10.0); %Lymphocytes 8.5 % (21.0-51.0); %Monocytes 0.4 % (0.0-10.0); %Neutrophils 90.6 % (42.0-75.0); Hemoglobin 11.9 g/dL (12.0-16.0); Mean Corpuscular HGB CONC 32.5 g/dL (32.0-36.0); Mean Corpuscular Volume 86.2 fL (78.0-98.0); Mean Platelet Volume 7.4 fL (7.4-10.4); Platelet Count 260 thou/uL (130-400); RBC Distribution Width 15.1 % (11.5-14.5); Red Blood Cell (RBC) Count 4.26 mill/uL (4.20-5.40); White Blood Cell (WBC) Count 13.1 thou/uL (4.8-10.8)
[2019-02-19 06:25] LABS: Anion Gap 14 mmol/L (10-20); BUN (Urea Nitrogen) 12 mg/dL (7.0-18.7); Calc. Creatinine Clearance 115 mL/min (70-130); Calcium 9.3 mg/dL (7.8-10.44); Carbon Dioxide 19 mmol/L (22-29); Chloride 107 mmol/L (98-107); Estimated GFR-MDRD Greater than 90; Glucose 118 mg/dL (70-105); Potassium 4.3 mmol/L (3.5-5.1); Sodium 136 mmol/L (136-145)
--- NOTE | 2019-02-19 08:07 | HP ---
PRIMARY CARE PHYSICIAN: Crystal Sierra. CHIEF COMPLAINT: Abdominal pain. HISTORY OF PRESENT ILLNESS: This is a 33-year-old white female with a known history of Crohn's disease as well as multiple bowel obstructions requiring multiple bowel resection surgeries. She was seen 7 days ago here for what was thought to be a Crohn's flare. She was started on steroids, given a short course of ciprofloxacin. She was also put on pain medicines and dicyclomine. The patient was feeling much better by about 4 days ago and so was discharged home to follow up in the GI clinic. The patient reports that she was doing fine on Friday and Friday, and then 2 days ago after work in the evening, she started getting severe worsening of pain. The pain was midepigastric and left upper quadrant, cramping in nature, similar to previous pain, although last time she also had it into her back, this time she did not. She vomited once last night and then was nauseated all this morning, having significant pain, so came into the emergency room. In the ER, she had no real changes from her previous labs. Dr. Ponce was consulted from the ER and she has already seen the patient and recommended admission and n.p.o. for now. PAST MEDICAL HISTORY: 1. Crohn's disease. 2. Recurrent bowel obstructions. 3. Gastroesophageal reflux disease. 4. Anemia. 5. Kidney stones. 6. Ovarian cyst. 7. Gout. 8. Pancreatitis. PAST PSYCHIATRIC HISTORY: Anxiety. PAST SURGICAL HISTORY: 1. Multiple colon surgeries. 2. Four bowel resections. 3. Ileostomy with reversal in 2014. 4. Cholecystectomy. 5. Tubal ligation. 6. x3. 7. Bilateral oophorectomy. SOCIAL HISTORY: The patient reports drinking alcohol several months ago, had about 2 glasses of wine that led to a pancreatitis episode and so she has stopped drinking altogether. She does smoke marijuana. No other drug use. No tobacco use. She is and her is present in the emergency room with her. FAMILY HISTORY: No known family history of GI malignancies or other GI problems. ALLERGIES: MORPHINE, WHICH CAUSES ERRATIC BEHAVIOR. CURRENT MEDICATIONS: 1. Prednisone, currently in a taper. 2. Bentyl 10 mg every 8 hours as needed for pain. REVIEW OF SYSTEMS: CONSTITUTIONAL: No fevers. She has had some chills. EYES: No double vision. She has had some chronic blurry vision. She wears glasses occasionally. ENT: No congestion, drainage or sore throat. CARDIOVASCULAR: No chest pain, no palpitations or racing heart. PULMONARY: No coughing, wheezing or shortness of breath. GASTROINTESTINAL: See HPI. She does have usually 3-4 soft bowel movements per day. She has had about 10-20 over the last 24 hours, which is fairly typical for her flares of pain. Her pain also is worse before and after bowel movements. GENITOURINARY: No dysuria or hematuria. MUSCULOSKELETAL: No muscle aches or joint pains. SKIN: No rashes or lesions. NEUROLOGIC: No numbness, tingling, or focal weakness. PHYSICAL EXAMINATION: VITAL SIGNS: Blood pressure 103/70, pulse 74, respirations 18, temperature 98, O2 saturation 100% on room air. GENERAL: This is a well-developed, well-nourished white female, who appears in mild distress secondary to pain. HEENT: Pupils are equal, round, and reactive to light. Oropharynx is clear without lesions, erythema, or exudate. NECK: Supple. No lymphadenopathy. No thyroid nodules or enlargement. No JVD. HEART: Regular rate and rhythm. No murmurs, rubs, or gallops. LUNGS: Clear to auscultation bilaterally. No wheezes, crackles, or rhonchi. ABDOMEN: Soft, tender to palpation mostly in the mid epigastric region, a little bit in the left upper quadrant with some minimal guarding. No rebound tenderness. No hepatosplenomegaly or other masses. Normoactive bowel sounds. EXTREMITIES: No clubbing, cyanosis, or edema. SKIN: No rashes or other lesions noted. NEUROLOGIC: Intact strength and sensation in all extremities. No facial droop. LABORATORY DATA: CBC with a white blood cell count of 16,000, which is persistent since her last hospitalization. No other abnormalities. A complete metabolic panel is normal except for a lipase of 143, which is again persistent since her last hospitalization. No changes there. ASSESSMENT: 1. Recurrent abdominal pain, likely Crohn flare versus chronic adhesion pains. Dr. Ponce has been consulted. We will give the patient IV pain medicine, antiemetics, and IV fluids. 2. History of Crohn disease. We will leave treatment up to Dr. Ponce. We will continue steroids for now. 3. Previous urinary tract infection. We will check a UA to make sure this is cleared completely. 4. Gastrointestinal prophylaxis. We will put the patient on Pepcid twice a day. 5. Deep venous thrombosis prophylaxis. We will put the patient on Lovenox and SCDs while in bed. 6. Code status. The patient is full code. Should she be incapacitated, her medical decision maker is , and his name is Pee Dubose. Job ID: [id number]
[2019-02-19] MEDS: Enoxaparin Sodium 40 MG/0.4 ML SYRINGE SC SCH (11:53)
[2019-02-19] MEDS: Famotidine 20 MG TAB PO SCH ×2 (12:00→20:10)
--- NOTE | 2019-02-19 13:35 | PRG ---
DATE OF SERVICE: 02/19/2019 SUBJECTIVE: Ms. Dubose feels her upper abdominal pain has marginally improved, though it is still significant. She is continuing to request fentanyl. No vomiting. She says she has had 5 bowel movements already today, nonbloody. She has remained hemodynamically stable. OBJECTIVE: VITAL SIGNS: Temperature 98.3, pulse 80, blood pressure 109/75, and 96% oxygen saturation on room air. GENERAL: No acute distress. HEART: Regular rate and rhythm. LUNGS: Clear to auscultation bilaterally. ABDOMEN: Soft. The bowel sounds are present though hypoactive. Tender to palpation in the epigastrium, but no guarding or rebound tenderness. EXTREMITIES: No peripheral edema. LABORATORY STUDIES: Urine culture shows no growth at 12 hours. Urinalysis is essentially negative. Sodium 136, potassium 4.3, BUN 12, creatinine 0.66. WBC 13.1, hemoglobin 11.9, platelets 260. ASSESSMENT AND PLAN: 1. Crohn disease, status post multiple partial small bowel resections due to stricturing disease. 2. Lipase elevation, possibly representing mild recurrent pancreatitis. I would continue with current therapy for now. Continue n.p.o. status and the IV steroids. There is some suspicion for pain seeking behavior in this case. However, she does indeed have a significant history of Crohn disease with multiple surgeries. We would check inflammatory markers with tomorrow morning's labs. Dr. Boo is covering for the GI service this weekend. Job ID: [id number]
[2019-02-19] MEDS ORDERED: diphenhydrAMINE 25 MG CAP PO PRN (18:18)
--- NOTE | 2019-02-19 21:36 | PDOC.PN ---
- Subjective Encounter Start Date: 02/19/19 Encounter Start Time: 18:00 Feels like she is getting a little better. Still has discomfort in the epigastric area and LUQ. - Objective Resuscitation Status - Order Detail: 02/18/19 15:19 Resuscitation Status Routine Resuscitation Status: FULL: Full Resuscitation Discussed with: Errol LONGORIA Reviewed: Yes Vital Signs & Weight: Vital Signs (12 hours) Temp Pulse Resp BP Pulse Ox 02/19/19 20:21 98.0 F 64 20 107/66 98 02/19/19 15:31 98.3 F 80 14 107/66 99 02/19/19 11:20 98.3 F 80 20 109/75 96 Weight Admit Weight 135 lb Weight 135 lb I&O: 02/18/19 02/19/19 02/20/19 06:59 06:59 06:59 Intake Total 944 1500 Output Total 3 Balance 941 1500 Result Diagrams: 02/19/19 05:17 02/19/19 05:17 Phys Exam - Physical Examination Constitutional: NAD Respiratory: no wheezing, no rales, no rhonchi, clear to auscultation bilateral Cardiovascular: RRR, no significant murmur, no rub Gastrointestinal: soft, no distention, positive bowel sounds TTP in the epigastrium. No guarding. Psychiatric: normal affect, A&O x 3 Dx/Plan (1) Elevated lipase Code(s): R74.8 - ABNORMAL LEVELS OF OTHER SERUM ENZYMES Status: Acute (2) Abdominal pain Code(s): R10.9 - UNSPECIFIED ABDOMINAL PAIN Status: Acute (3) Crohn disease Code(s): K50.90 - CROHN'S DISEASE, UNSPECIFIED, WITHOUT COMPLICATIONS Status: Acute - Plan * Doing a little better. * Followed by GI. * Hx numerous abd. surgeries. * Continue IV steroids. * Continue IV Fentanyl for pain.
[2019-02-20] MEDS: methylPREDNISolone Sod Succ 40 MG VIAL IVP SCH ×5 (00:36→23:23)
[2019-02-20] MEDS: Fentanyl 100 MCG/2 ML VIAL SLOW IVP PRN ×11 (00:36→23:22)
[2019-02-20] MEDS: Metoclopramide HCl 10 MG/2 ML VIAL IVP PRN (00:40)
[2019-02-20] MEDS: Sodium Chloride 0.45% 1,000 ML IV SCH ×2 (02:56→16:25)
[2019-02-20 06:50] LABS: CRP (Inflammatory) Less than 0.50 mg/dL (= or < 0.5); Lipase 21 U/L (8-78)
[2019-02-20] MEDS: Enoxaparin Sodium 40 MG/0.4 ML SYRINGE SC SCH (09:02)
[2019-02-20] MEDS: Famotidine 20 MG TAB PO SCH ×2 (09:03→21:11)
[2019-02-20] MEDS: Dicyclomine 10 MG CAP PO PRN (09:52)
--- NOTE | 2019-02-20 11:11 | PRG ---
DATE OF SERVICE: 02/20/2019 SUBJECTIVE: This is a 33-year-old female with history of longstanding Crohn disease with multiple surgeries. She also has had a cholecystectomy done in the past. She has also abdominal pain and there is elevation of lipase to 143. She is on pain medication. She is actually feeling better today. She had a stool today. She has no more nausea or vomiting. Abdominal pain is much better today. Her lipase is down to 21 today. OBJECTIVE: GENERAL: Appears comfortable, afebrile. VITAL SIGNS: Temperature 98.2 degrees Fahrenheit, pulse is 83, and blood pressure 107/71. CARDIOVASCULAR AND Lungs: Within normal limits. ABDOMEN: Soft. Abdomen is nondistended. She is minimally tender over the epigastric area. Overall, the exam is very benign. LABORATORY DATA: Lipase came back to normal at 21. CLINICAL IMPRESSION: 1. Pancreatitis, mild. 2. Crohn disease with multiple surgeries. RECOMMENDATIONS: clear liquid diet, and if she does well, advance diet as tolerated tomorrow. She is on IV steroids. consider discharge home on steroid taper. She will follow up with Dr. Mickey Mccrary as outpatient in the future. Job ID: [id number]
[2019-02-20] MEDS ORDERED: Metoclopramide HCl 10 MG TAB PO PRN (13:48)
--- NOTE | 2019-02-20 22:04 | PDOC.PN ---
- Subjective Encounter Start Date: 02/20/19 Encounter Start Time: 10:30 Continues to feel some better. Tolerating some clear liquids. Eager to advancer her diet. - Objective Resuscitation Status - Order Detail: 02/18/19 15:19 Resuscitation Status Routine Resuscitation Status: FULL: Full Resuscitation Discussed with: Patient Vital Signs & Weight: Vital Signs (12 hours) Temp Pulse Resp BP Pulse Ox 02/20/19 20:15 98.7 F 67 20 113/72 96 02/20/19 15:30 98.5 F 65 16 105/68 99 02/20/19 12:00 99.3 F 70 16 116/76 98 Weight Admit Weight 135 lb Weight 135 lb I&O: 02/19/19 02/20/19 02/21/19 06:59 06:59 06:59 Intake Total 944 3360 1015 Output Total 3 Balance 941 3360 1015 Result Diagrams: 02/19/19 05:17 02/19/19 05:17 Phys Exam - Physical Examination Constitutional: NAD Respiratory: no wheezing, no rales, no rhonchi, clear to auscultation bilateral Cardiovascular: RRR, no significant murmur, no rub Gastrointestinal: soft, no distention, positive bowel sounds Mild epigastric TTP Musculoskeletal: no edema Neurological: non-focal, moves all 4 limbs Psychiatric: normal affect, A&O x 3 Skin: no rash, normal turgor Dx/Plan (1) Abdominal pain Code(s): R10.9 - UNSPECIFIED ABDOMINAL PAIN Status: Acute (2) Crohn disease Code(s): K50.90 - CROHN'S DISEASE, UNSPECIFIED, WITHOUT COMPLICATIONS Status: Acute (3) Elevated lipase Code(s): R74.8 - ABNORMAL LEVELS OF OTHER SERUM ENZYMES Status: Acute - Plan * Continue IV steroids. * Advance diet. * Hope to be on regular diet tomorrow and discharge with po abx.
[2019-02-21] MEDS: Fentanyl 100 MCG/2 ML VIAL SLOW IVP PRN ×5 (01:52→10:40)
[2019-02-21] MEDS: methylPREDNISolone Sod Succ 40 MG VIAL IVP SCH ×4 (06:43→23:57)
[2019-02-21] MEDS: Famotidine 20 MG TAB PO SCH ×2 (08:30→20:44)
[2019-02-21] MEDS: Enoxaparin Sodium 40 MG/0.4 ML SYRINGE SC SCH (08:33)
--- NOTE | 2019-02-21 11:55 | PRG ---
DATE OF SERVICE: 02/21/2019 SUBJECTIVE: She reports that she has tolerated clear liquids fairly well and like to try the regular diet. Nurses report that she has been ambulating all around the floor. They also indicate the patient has been requesting the fentanyl every 2 hours and in advance. OBJECTIVE: VITAL SIGNS: Temperature 98.4, pulse 58, respirations 16, O2 saturation 99% on room air, and BP 124/80. GENERAL APPEARANCE: Age-appropriate female, in no distress. She is awake, alert, and oriented. HEART: Regular rate and rhythm without murmurs, gallops, or rubs. LUNGS: Clear bilaterally. ABDOMEN: Still has some mild persistent tenderness to palpation in the epigastric area. EXTREMITIES: No edema. IMPRESSION AND PLAN: Abdominal pain. The patient apparently has a history of Crohn disease, which may be flaring. Discussed this with Dr. Boo, who knew the patient from an outpatient setting previously, said that diagnosis was something that he could never fully confirm. The patient is noted to have a C-reactive protein of less than 0.5. Lipase initially was 143, repeat yesterday was 21. She indicates that she is allergic to morphine and she cannot take Tylenol No. 3 because it gave her a "bowel obstruction." I told her that the only thing I would be able to give her otherwise would be that the tramadol, so we agreed that she would advance to regular diet today at noon. I will stop the fentanyl and put her over on p.o. tramadol, and see if we can get through the evening meal without significant pain and anticipate discharge in the morning. Job ID: [id number]
[2019-02-21] MEDS: Ondansetron ODT 4 MG TAB PO PRN (12:14)
[2019-02-21] MEDS: traMADol HCl 50 MG TAB PO PRN ×3 (12:14→21:15)
[2019-02-21] MEDS: Dicyclomine 10 MG CAP PO PRN (17:07)
[2019-02-21] MEDS: Sodium Chloride 0.45% 1,000 ML IV SCH (17:16)
--- NOTE | 2019-02-21 18:30 | PRG ---
DATE OF SERVICE: 02/21/2019 SUBJECTIVE: This is a 33-year-old female with abdominal pain with some nausea. She has history of Crohn disease with previous surgeries. The patient has had mild pancreatitis with lipase around 143. Lipase has come back to normal. She is on clear liquid diet. She is tolerating diet. She currently pain medication. She actually appears very comfortable; however, she keeps asking for the pain medicines Crohn disease. OBJECTIVE: GENERAL: Appears very comfortable. VITAL SIGNS: Afebrile, pulse is 59, blood pressure 107/72. HEENT: Conjunctivae clear. CARDIOVASCULAR: First and second heart sounds heard. LUNGS: Clear to auscultation. ABDOMEN: Soft. Abdomen is nondistended. Abdomen is minimally tender, which is not diffuse. There is no rebound or guarding. EXTREMITIES: Reveal no edema. LABORATORY DATA: Inflammatory markers like ESR is actually normal. The C-reactive protein again is less than 0.50, which is normal. CLINICAL IMPRESSION: 1. History of Crohn disease, but I do not believe she has active Crohn's as she has normal inflammatory markers. 2. Pancreatitis, mild, which is resolved. Lipase is back to normal. RECOMMENDATIONS: 1. Advance diet to regular diet. 2. Reduce the pain medicines to tramadol. 3. If she does well, she can go home on a steroid taper tomorrow. Job ID: [id number]
[2019-02-22] MEDS: Dicyclomine 10 MG CAP PO PRN (01:11)
[2019-02-22] MEDS: Ondansetron ODT 4 MG TAB PO PRN (01:11)
[2019-02-22] MEDS: traMADol HCl 50 MG TAB PO PRN ×2 (01:11→06:19)
[2019-02-22] MEDS: Sodium Chloride 0.45% 1,000 ML IV SCH ×2 (05:07→06:18)
[2019-02-22] MEDS: methylPREDNISolone Sod Succ 40 MG VIAL IVP SCH (06:14)
[2019-02-22 07:54] VITALS: BP 130/81; TEMP 97.8
[2019-02-22] MEDS: Famotidine 20 MG TAB PO SCH (08:41)
[2019-02-22] MEDS: Enoxaparin Sodium 40 MG/0.4 ML SYRINGE SC SCH (08:49)
--- NOTE | 2019-02-22 10:22 | DIS ---
DATE OF ADMISSION: 02/18/2019 DATE OF DISCHARGE: 02/22/2019 DISCHARGE DIAGNOSES: 1. Abdominal pain. 2. History of Crohn disease. 3. Possible mild pancreatitis with slightly elevated lipase. HISTORY OF PRESENT ILLNESS: This patient is a 33-year-old female with a history of Crohn disease, who has required multiple bowel resection surgeries due to obstructions. The patient had initially been seen in the emergency department, with what was thought to be a Crohn's flare and given some steroids and antibiotics with pain medicines and dicyclomine. She was feeling better. Had discharged with outpatient followup, then developed recurrence of epigastric and left upper quadrant abdominal pain and cramping. She had some associated vomiting. The patient was subsequently admitted for recurrent abdominal pain. The patient with a history of Crohn disease. HOSPITAL COURSE: The patient remained in the hospital on IV steroids, IV pain medications, and hydration. She was initially n.p.o., but as she improved over the subsequent couple of days, she was advanced on her diet and ultimately was feeling better, able to tolerate regular diet and manage her pain with p.o. tramadol. Her vital signs remained stable throughout. Labs were primarily notable for a C-reactive protein of less than 0.5. Her initial lipase was 143 on 02/18/2019. On 02/20/2019, it was 21. PHYSICAL EXAMINATION: VITAL SIGNS: On the day of discharge, her temperature is 97.8, pulse 66, respirations 16, O2 saturation 98% on room air, and blood pressure 130/81. GENERAL APPEARANCE: Age-appropriate female, in no distress. She is awake, alert, oriented, pleasant, cooperative. HEART: Regular rate and rhythm without murmurs. LUNGS: Clear. ABDOMEN: Minimal tenderness to palpation in the epigastric, left upper quadrant areas, but much improved from previous exam. EXTREMITIES: No cyanosis, clubbing, or edema. DISPOSITION: The patient is discharged to home. DISCHARGE MEDICATIONS: She will continue with her usual home medicines that include; 1. Famotidine 20 mg b.i.d. 2. Dicyclomine 10 mg q.6 hours p.r.n. 3. Zofran p.r.n. 4. She will also have a prescription for tramadol 50 mg p.o. q.4 hours p.r.n. abdominal pain. 5. Prednisone, which she says she already has at home. She will take 40 mg for 2 days, 20 mg for 2 days and then stop. DISCHARGE INSTRUCTIONS: She has indicated she would like to follow up with Dr. Mccrary in the outpatient clinic. She has already called her office and tried to start that process. She is also encouraged to follow up with a primary care provider. She can return to the hospital should she have any need to prior to her followup and she is on no dietary restrictions and her activity is as tolerated. Total time spent in discharge planning activities including [id number] time with the patient answering appropriate questions was 31 minutes. Job ID: [id number]
== END 2019-02-22 09:12 | disposition home or self-care (01) ==
LOC: ERS 11:00 → ERHOLD 14:21 → 3SE 18:49 → SURG A 23:26
PROVIDERS: ADMIT Emergency Medicine; ATTEND Emergency Medicine
DX: R10.11 Right upper quadrant pain (principal); R11.10 Vomiting, unspecified; K21.9 Gastro-esophageal reflux disease without esophagitis; D64.9 Anemia, unspecified; M10.9 Gout, unspecified; Z79.52 Long term (current) use of systemic steroids; Z79.899 Other long term (current) drug therapy; Z87.19 Personal history of other diseases of the digestive system; Z88.5 Allergy status to narcotic agent
CPT/HCPCS: 36415; 80048; 80053; 81003; 81015; 83690; 85025; 85652; 86140; 87086; 90471; 90670; 96361; 96365; 96372; 96375; 96376; G0009; G0378; J1650; J2405; J2765; J2920; J3010; Q0162; Q0163

== ENCOUNTER 2019-02-27 12:56 | Emergency (ER) | payer SELFPAY ==
[2019-02-27 14:20] LABS: ALT (SGPT) 28 U/L (8-55); AST (SGOT) 18 U/L (5-34); Albumin 3.7 g/dL (3.5-5.0); Alkaline Phosphatase 70 U/L (40-150); Anion Gap 15 mmol/L (10-20); BUN (Urea Nitrogen) 13 mg/dL (7.0-18.7); Bilirubin, Total 0.2 mg/dL (0.2-1.2); Calc. Creatinine Clearance 0 mL/min (70-130); Calcium 9.2 mg/dL (7.8-10.44); Carbon Dioxide 20 mmol/L (22-29); Chloride 108 mmol/L (98-107); Estimated GFR-MDRD Greater than 90; Globulin 3.3 g/dL (2.4-3.5); Glucose 85 mg/dL (70-105); Lipase 74 U/L (8-78); Potassium 3.7 mmol/L (3.5-5.1); Sodium 139 mmol/L (136-145)
[2019-02-27 14:22] LABS: Band 3 % (5-11); Eosinophils 1 % (0-10); Hemoglobin 11.9 g/dL (12.0-16.0); Lymphocytes 18 % (21-51); MDiff Complete? YES; Mean Corpuscular HGB CONC 32.8 g/dL (32.0-36.0); Mean Corpuscular Volume 85.3 fL (78.0-98.0); Mean Platelet Volume 7.1 fL (7.4-10.4); Monocytes 5 % (0-10); Neutrophil 73 % (42-75); Platelet Count 232 thou/uL (130-400); Platelet Morphology Comment Appears Adequate; RBC Distribution Width 15.9 % (11.5-14.5); RBC Morphology Normal; Red Blood Cell (RBC) Count 4.24 mill/uL (4.20-5.40); White Blood Cell (WBC) Count 15.1 thou/uL (4.8-10.8)
[2019-02-27] MEDS ORDERED: Haloperidol Lactate 5 MG/ML VIAL ONE (14:27)
[2019-02-27] MEDS ORDERED: diphenhydrAMINE 50 MG/ML VIAL ONE (14:27)
[2019-02-27] MEDS ORDERED: Sucralfate 1 GM TAB ONE (14:29)
[2019-02-27] MEDS ORDERED: Pantoprazole 40 MG VIAL ONE (14:29)
[2019-02-27 14:43] LABS: Bilirubin Negative (Negative); Blood, Urine Small (Negative); Glucose, Urine (Dipstick) Negative (Negative); Leukocyte Negative (Negative); Nitrite Negative (Negative); Protein, Urine (Dipstick) 30 mg/dL (Neg-Trace); Urobilinogen 0.2 mg/dL (0.2-1.0)
[2019-02-27 14:44] LABS: Bacteria/HPF 1+ HPF (None Seen); Clarity Hazy (Clear); Crystals/HPF 1+ CA OXALATE HPF (Negative); Specific Gravity, Urine 1.026 (1.002-1.036); WBC/HPF None Seen HPF (0-3)
[2019-02-27 14:45] LABS: Pregnancy Test - Urine (BHCG) Negative (Negative); Pregu Control Background? CLEAR/WHITE (CLR/WHITE); Pregu Control Bar Appear? YES (CONTROL BAR); Specific Gravity 1.026 (1.002-1.036)
[2019-02-27] MEDS ORDERED: Ketorolac Tromethamine 30 MG/ML VIAL ONE (15:08)
== END 2019-02-27 15:23 | disposition home or self-care (01) ==
LOC: SCSER 12:56
DX: R10.13 Epigastric pain (principal); R10.32 Left lower quadrant pain; R10.817 Generalized abdominal tenderness; D64.9 Anemia, unspecified; K58.9 Irritable bowel syndrome, unspecified; F41.9 Anxiety disorder, unspecified; Z87.891 Personal history of nicotine dependence; Z87.442 Personal history of urinary calculi
CPT/HCPCS: 80053; 81003; 81015; 81025; 83605; 83690; 85025; 86140; C9113; J1200; J1630; J1885

== ENCOUNTER 2019-04-07 20:17 | Emergency (ER) | payer SELFPAY ==
[2019-04-07 20:45] LABS: #Basophils 0.1 thou/uL (0.0-0.2); #Eosinphils 0.2 thou/uL (0.0-0.7); #Monocytes 0.5 thou/uL (0.11-0.59); #Neutrophils 6.2 thou/uL (1.40-6.50); %Basophils 0.6 % (0.0-1.0); %Eosinophils 2.4 % (0.0-10.0); %Lymphocytes 29.8 % (21.0-51.0); %Monocytes 5.1 % (0.0-10.0); Hemoglobin 11.5 g/dL (12.0-16.0); Mean Corpuscular Hemoglobin 28.9 pg (27.0-31.0); Mean Corpuscular Volume 84.8 fL (78.0-98.0); Mean Platelet Volume 6.8 fL (7.4-10.4); Platelet Count 282 thou/uL (130-400); RBC Distribution Width 15.1 % (11.5-14.5)
[2019-04-07] MEDS ORDERED: Morphine 4 MG/ML VIAL ONE (20:57)
[2019-04-07] MEDS ORDERED: Ondansetron PF 4 MG/2 ML Vial ONE (20:57)
[2019-04-07 21:06] LABS: ALT (SGPT) 20 U/L (8-55); AST (SGOT) 18 U/L (5-34); Alkaline Phosphatase 87 U/L (40-150); Anion Gap 13 mmol/L (10-20); BUN (Urea Nitrogen) 11 mg/dL (7.0-18.7); Bilirubin, Total 0.3 mg/dL (0.2-1.2); Calc. Creatinine Clearance 0 mL/min (70-130); Calcium 9.4 mg/dL (7.8-10.44); Carbon Dioxide 22 mmol/L (22-29); Chloride 108 mmol/L (98-107); Estimated GFR-MDRD Greater than 90; Globulin 2.9 g/dL (2.4-3.5); Glucose 86 mg/dL (70-105); Protein, Total 6.9 g/dL (6.0-8.3); Sodium 139 mmol/L (136-145)
[2019-04-07 22:14] LABS: Bacteria/HPF 1+ HPF (None Seen); Bilirubin Negative (Negative); Blood, Urine Negative (Negative); Calcium Oxalate Crystals 2+ HPF (None Seen); Clarity Clear (Clear); Glucose, Urine (Dipstick) Normal (Negative); Leukocyte 75 Leu/uL (Negative); Nitrite Negative (Negative); Protein, Urine (Dipstick) 20 mg/dL (Neg-Trace); Squamous Epithelial 0-3 HPF (0-3)
[2019-04-07 22:16] LABS: Pregnancy Test - Urine (BHCG) Negative (Negative); Pregu Control Background? CLEAR/WHITE (CLR/WHITE); Pregu Control Bar Appear? YES (CONTROL BAR); Specific Gravity 1.032 (1.002-1.036)
== END 2019-04-07 22:40 | disposition home or self-care (01) ==
LOC: ERS 20:17
DX: N39.0 Urinary tract infection, site not specified (principal); G89.29 Other chronic pain; R10.9 Unspecified abdominal pain; R10.816 Epigastric abdominal tenderness; R11.2 Nausea with vomiting, unspecified; R19.7 Diarrhea, unspecified; K21.9 Gastro-esophageal reflux disease without esophagitis; D64.9 Anemia, unspecified; F41.9 Anxiety disorder, unspecified; Z87.442 Personal history of urinary calculi; Z87.891 Personal history of nicotine dependence
CPT/HCPCS: 36415; 80053; 81003; 81015; 81025; 83690; 85025; 96372; 96374; 96375; J0500; J2270; J2405

== ENCOUNTER 2019-06-01 13:59 | Emergency (ER) | payer SELFPAY ==
[2019-06-01 14:51] LABS: Band 1 % (5-11); Eosinophils 1 % (0-10); Hemoglobin 12.9 g/dL (12.0-16.0); Lymphocytes 13 % (21-51); MDiff Complete? YES; Mean Corpuscular HGB CONC 33.3 g/dL (32.0-36.0); Mean Corpuscular Hemoglobin 28.3 pg (27.0-31.0); Mean Platelet Volume 5.8 fL (7.4-10.4); Monocytes 4 % (0-10); Neutrophil 77 % (42-75); Platelet Count 273 thou/uL (130-400); Platelet Morphology Comment Appears Adequate; RBC Distribution Width 13.9 % (11.5-14.5); Reactive Lymphocytes 4 % (0-10); Red Blood Cell (RBC) Count 4.56 mill/uL (4.20-5.40); Toxic Granulation SLIGHT; White Blood Cell (WBC) Count 13.1 thou/uL (4.8-10.8)
[2019-06-01] MEDS ORDERED: Promethazine HCl 25 MG/ML VIAL ONE (14:58)
[2019-06-01 15:00] LABS: ALT (SGPT) 44 U/L (8-55); AST (SGOT) 37 U/L (5-34); Albumin 4.2 g/dL (3.5-5.0); Alkaline Phosphatase 135 U/L (40-150); Anion Gap 14 mmol/L (10-20); BUN (Urea Nitrogen) 11 mg/dL (7.0-18.7); Bilirubin, Total 0.2 mg/dL (0.2-1.2); Calc. Creatinine Clearance 0 mL/min (70-130); Calcium 9.4 mg/dL (7.8-10.44); Carbon Dioxide 22 mmol/L (22-29); Chloride 109 mmol/L (98-107); Estimated GFR-MDRD Greater than 90; Globulin 3.2 g/dL (2.4-3.5); Glucose 67 mg/dL (70-105); Lipase 105 U/L (8-78); Potassium 3.4 mmol/L (3.5-5.1); Protein, Total 7.4 g/dL (6.0-8.3); Sodium 142 mmol/L (136-145)
[2019-06-01 15:13] LABS: Bilirubin Small (Negative); Blood, Urine Trace (Negative); Clarity Cloudy (Clear); Glucose, Urine (Dipstick) Negative (Negative); Leukocyte Negative (Negative); Nitrite Negative (Negative); Protein, Urine (Dipstick) 30 mg/dL (Neg-Trace); Urobilinogen 0.2 mg/dL (Less than 2)
[2019-06-01 15:14] LABS: Bacteria/HPF 1+ HPF (None Seen); Calcium Oxalate Crystals 3+ HPF (None Seen); Mucous/LPF 1+ LPF (<2+); RBC/HPF 0-3 HPF (0-3); Squamous Epithelial 0-3 HPF (0-3); WBC/HPF 0-3 HPF (0-3)
--- NOTE | 2019-06-01 15:16 | RAD ---
2 views of the chest: 06/01/2019 COMPARISON: None HISTORY: Cough FINDINGS: Mild increased linear interstitial density. No focal consolidation or alveolar edema. Heart and mediastinal contours are unremarkable. IMPRESSION: No acute findings.
[2019-06-01 15:17] LABS: BHCG - Serum Negative (NEGATIVE); Pregs Control Background? CLEAR/WHITE (CLR/WHITE); Pregs Control Bar Appear? YES (CONTROL BAR)
== END 2019-06-01 15:40 | disposition home or self-care (01) ==
LOC: SCSER 13:59
DX: J06.9 Acute upper respiratory infection, unspecified (principal); E86.0 Dehydration; Z87.891 Personal history of nicotine dependence
CPT/HCPCS: 71046; 80053; 81003; 81015; 83605; 83690; 84703; 85025; 85379; 93005; 96365; J2550

== ENCOUNTER 2020-04-06 16:33 | Inpatient (IN) | payer BC ==
[~2020-04-06 16:33] MED LIST changes: -Iopamidol 370 76% 100 ML VIAL ONE; +Iopamidol-370 76% 500 ML 1 ML ONE
[2020-04-06 17:26] LABS: #Basophils 0.1 thou/uL (0.0-0.2); #Eosinphils 0.1 thou/uL (0.0-0.7); #Lymphocytes 3.1 thou/uL (1.20-3.40); #Monocytes 0.7 thou/uL (0.11-0.59); %Basophils 0.6 % (0.0-1.0); %Eosinophils 0.7 % (0.0-10.0); %Monocytes 4.3 % (0.0-10.0); %Neutrophils 76.4 % (42.0-75.0); Hemoglobin 12.2 g/dL (12.0-16.0); Mean Corpuscular HGB CONC 31.8 g/dL (32.0-36.0); Mean Corpuscular Hemoglobin 26.6 pg (27.0-31.0); Mean Corpuscular Volume 83.6 fL (78.0-98.0); Mean Platelet Volume 7.6 fL (7.4-10.4); Platelet Count 439 thou/uL (130-400)
[2020-04-06] MEDS ORDERED: Fentanyl 100 MCG/2 ML VIAL ONE ×2 (17:47→20:03)
[2020-04-06 17:56] LABS: ALT (SGPT) 40 U/L (8-55); AST (SGOT) 30 U/L (5-34); Albumin 4.4 g/dL (3.5-5.0); Alkaline Phosphatase 159 U/L (40-110); Anion Gap 15 mmol/L (10-20); BUN (Urea Nitrogen) 21 mg/dL (7.0-18.7); Bilirubin, Total 0.2 mg/dL (0.2-1.2); Calc. Creatinine Clearance 0 mL/min (70-130); Calcium 9.4 mg/dL (7.8-10.44); Carbon Dioxide 21 mmol/L (22-29); Chloride 101 mmol/L (98-107); Estimated GFR-MDRD 76; Globulin 4.1 g/dL (2.4-3.5); Glucose 94 mg/dL (70-105); Lipase 350 U/L (8-78); Potassium 3.1 mmol/L (3.5-5.1); Protein, Total 8.5 g/dL (6.0-8.3); Sodium 134 mmol/L (136-145)
[2020-04-06 18:09] LABS: Bacteria/HPF None Seen HPF (None Seen); Bilirubin Negative (Negative); Blood, Urine Trace (Negative); Clarity Clear (Clear); Glucose, Urine (Dipstick) Normal (Negative); Ketone, Urine Negative (Negative); Leukocyte Negative Leu/uL (Negative); Mucous/LPF 1+ LPF (<2+); Nitrite Negative (Negative); Protein, Urine (Dipstick) 50 mg/dL (Neg-Trace); Specific Gravity, Urine 1.029 (1.002-1.036); Squamous Epithelial 0-3 HPF (0-3); Urobilinogen Normal mg/dL (Less than 2); pH, Urine 6.5 (5.0-9.0)
[2020-04-06 18:14] LABS: Pregnancy Test - Urine (BHCG) Negative (Negative); Pregu Control Background? CLEAR/WHITE (CLR/WHITE); Pregu Control Bar Appear? YES (CONTROL BAR); Specific Gravity 1.029 (1.002-1.036)
[2020-04-06] MEDS ORDERED: Magnesium 2 GM/50 ML BAG (IN WATER) ONE (18:55)
[2020-04-06] MEDS ORDERED: Potassium Chloride 20 MEQ TAB ONE (18:55)
[2020-04-06] MEDS ORDERED: Ondansetron PF 4 MG/2 ML Vial ONE ×2 (18:57→21:37)
--- NOTE | 2020-04-06 19:47 | CT ---
CT ABDOMEN AND PELVIS WITH IV CONTRAST 04/06/2020 CLINICAL INFORMATION: Diffuse upper abdominal tenderness. Upper abdominal pain which has been ongoing for one month. COMPARISON: 11/21/2019 Technique: Multiple contiguous axial CT images are obtained through the abdomen and pelvis with IV contrast. Cor onal reformatted images are provided. FINDINGS: Lower Chest: Lung bases are clear. Vessels: Abdominal aorta is normal in caliber without evidence of an aortic dissection. Abdomen: Portal vein:Patent Gallbladder: Surgically absent. Liver: within normal limits. Spleen: within normal limits. Pancreas: within normal limits. Adrenals: within normal limits. Kidneys: within normal limits. Bowel: There are stable postoperative changes related to colectomy. Mild nonspecific prominence of lo ops of small bowel are seen in the left abdomen which demonstrate prominence of the bowel wall and are fluid-filled. This is overall a nonspecific finding and could be related to peristalsis. Enteriti s could not be entirely excluded. Similar finding was seen on studies in 2019 Peritoneum: No ascites or free air; no fluid collection. Mesentery and Retroperitoneum: There is a prominent lymph nodes seen within the upper pelvis just ant erior to the L5-S1 level which is seen on multiple prior studies dating back to 2015. No additional enlarged lymph nodes are appreciated. Abdominal Wall: within normal limits. Pelvis: Reproductive Organs: No pelvic masses. Pelvis within normal limits. Bladder: Incompletely distended but otherwise grossly within normal limits. Bones: No suspicious lytic or sclerotic osseous lesion is identified. IMPRESSION: 1. Evidence of colectomy. 2. Prominent loops of small bowel scattered within the abdomen which are fluid-filled with suggestion of mild thickening of the hope of these loops of small bowel. Similar findings were noted on prior studies in 2019 and may be secondary to peristalsis. However, enteritis could not be entirely e xcluded. No adjacent inflammatory changes are appreciated. 3. There are otherwise no acute findings seen in the abdomen or pelvis.
[2020-04-06] MEDS ORDERED: HYDROcodone/Acetaminophen 5/325 mg Tablet PO PRN ×2 (22:10)
[2020-04-06] MEDS ORDERED: Acetaminophen 325 MG TAB PO PRN (22:10)
[2020-04-06 22:27] VITALS: BMI 26.0
[2020-04-07] MEDS ORDERED: Dicyclomine 10 MG CAP PO PRN (00:22)
[2020-04-07] MEDS: Sodium Chloride 0.9% 1,000 ML IV SCH ×4 (01:25→20:05)
[2020-04-07] MEDS: Fentanyl 100 MCG/2 ML VIAL SLOW IVP PRN ×5 (01:25→20:05)
[2020-04-07] MEDS ORDERED: diphenhydrAMINE 25 MG CAP PO SCH (01:45)
--- NOTE | 2020-04-07 05:54 | HP ---
PRIMARY CARE PROVIDER: Lorie Mike MD CHIEF COMPLAINT: Abdominal pain. HISTORY OF PRESENT ILLNESS: This is a 35-year-old female, who presents to [facility] complaining of approximately 4-week history of persistent abdominal pain in the left upper quadrant and mid epigastric region with some left flank radiation and association. The patient does admit to history of recurrent pancreatitis as well as history of Crohn disease, previously on Remicade therapy. The patient states she lost her insurance and has been off Remicade, but apparently is being evaluated to initiate Humira in the next several weeks. The patient states she has had recurrent abdominal pain worsened by oral intake such as food or drinks. The patient denied any direct trauma or injury. The patient does state that she was recently diagnosed with COVID-19 in the late portion of February 2020, treated symptomatically at [facility] in [place]. The patient states she has no specific pulmonary complaints and has recovered from the virus. The patient does admit to frequent loose watery bowel movements without blood. The patient admits to nausea without emesis. Symptomatic relief at home included Tylenol, tramadol, without specific improvement in symptoms. In the emergency room, the patient underwent general evaluation including CT imaging of the abdomen and pelvis showing chronic changes as well as thickening of the small bowel concerning for inflammatory process. Lipase was noted at 350, at which point, the patient received IV fluids in addition to fentanyl, Zofran, potassium chloride, magnesium sulfate, and intravenous normal saline. PAST MEDICAL HISTORY: 1. Acute on chronic pancreatitis. 2. Crohn disease. 3. Marijuana use. 4. History of recurrent bowel obstructions. 5. Gout. PAST SURGICAL HISTORY: 1. Status post multiple colon resections due to recurrent bowel obstructions with ileostomy and subsequent reversal. 2. Status post cholecystectomy. 3. Status post bilateral tubal ligation. 4. Status post section x3. 5. Status post bilateral oophorectomy. CURRENT MEDICATIONS: 1. Benadryl 25 mg p.o. at bedtime. 2. Zofran 4 mg p.o. p.r.n. nausea and vomiting. 3. Bentyl 10 mg p.o. q.6 hours p.r.n. abdominal pain. ALLERGIES: TO MORPHINE SULFATE. FAMILY HISTORY: No inheritable disease per patient report. SOCIAL HISTORY: Resides in [place], [place]. Occasional alcohol use. Frequent marijuana use. Remote tobacco use. Functional of all activities of daily living. REVIEW OF SYSTEMS: CONSTITUTIONAL: Negative for weight loss or gain, ability to conduct usual activities. SKIN: Negative for rash, itching. EYES: Negative for double vision, pain. ENT/MOUTH: Negative for nose bleeding, neck stiffness, pain, tenderness. CARDIOVASCULAR: Negative for palpitations, dyspnea on exertion, orthopnea. RESPIRATORY: Negative for shortness of breath, wheezing, cough, hemoptysis, fever or night sweats. GASTROINTESTINAL: Negative for poor appetite, abdominal pain, heartburn, nausea, vomiting, constipation, or diarrhea. GENITOURINARY: Negative for urgency, frequency, dysuria, nocturia. MUSCULOSKELETAL: Negative for pain, swelling. NEUROLOGIC/PSYCHIATRIC: Negative for anxiety, depression. ALLERGY/IMMUNOLOGIC: Negative for skin rash, bleeding tendency. Otherwise negative except as stated per HPI. PHYSICAL EXAMINATION: VITAL SIGNS: On admission, blood pressure 101/76, pulse 82, respiratory rate 18, temperature 98.4 degrees Fahrenheit, O2 saturation 99% on room air. GENERAL APPEARANCE: This is a 35-year-old female, alert and oriented x3, pleasant, responsive, in no acute distress. HEENT: Pupils are equal, round, reactive to light and accommodation. Extraocular muscles are intact. No scleral icterus. No conjunctival injection. Nares patent. OP is clear. Oral mucosa dry. NECK: Supple. No cervical adenopathy. No thyromegaly. No carotid bruits. No JVD appreciated. Cervical spine with full active and passive range of motion. No meningeal signs noted. CHEST: Lungs are clear to auscultation bilaterally. CARDIOVASCULAR EXAM: S1, S2 without noted murmur, rub, or gallop. ABDOMEN: Rounded, soft with mild tenderness to palpation in the mid epigastric and left upper quadrant region. Bowel sounds diminished, but positive in all 4 quadrants. No palpable mass. Postsurgical changes noted. EXTREMITIES: Warm and dry with fair turgor. No clubbing, cyanosis, or asymmetric edema appreciated. Pulses palpable distally at the dorsalis pedis, posterior tibial, and popliteal arteries bilaterally. Capillary refill less than 2 seconds. NEUROLOGIC: Cranial nerves 2 through 12 are grossly intact. No focal or lateralizing signs appreciated. PERTINENT LABORATORY AND X-RAY FINDINGS: Sodium 134, potassium 3.1, chloride 101, CO2 of 21, BUN 21, creatinine 0.84, glucose 94, calcium 9.4, AST 30, ALT of 40, total bilirubin 0.2, alkaline phosphatase 159, albumin 4.4, lipase 350, amylase 187. CBC showed a white blood cell count of 17, hemoglobin 12, hematocrit 38, platelet count 439 with 76% neutrophils. Urinalysis positive for protein. Urine beta-hCG negative, 04/06/2020. CT of the abdomen and pelvis dated 04/06/2020, showed chronic changes with prominent loops of small bowel, fluid-filled with a suggestion of mild thickening. No acute findings. Pancreas appears normal. ASSESSMENT AND PLAN: 1. Acute on chronic pancreatitis. The patient will be observed on the medical floor. We will continue supportive management with IV fluids with normal saline at 100 mL/h. Fentanyl 25 mcg IV q.4 hours p.r.n. pain. Serial abdominal exams. Repeat lipase in the a.m. Consult GI Service for any further recommendations. No obvious mechanism or etiology for elevated lipase. 2. Abdominal pain secondary to #1. Supportive management as outlined in #1. See above. 3. Hypokalemia. Potassium chloride supplementation with repeat potassium level in the a.m. 4. Crohn disease. Stable currently. Continue supportive management as outlined previously. Considering initiation of Humira on an outpatient basis. 5. Marijuana use. We will offer cessation resources prior to discharge. 6. Prophylaxis. SCDs while in bed. Pepcid 20 mg IV b.i.d. 7. Code status is full. Surrogate medical decision maker is the patient's spouse. Job ID: [id number]
[2020-04-07 06:19] LABS: #Basophils 0.1 thou/uL (0.0-0.2); #Eosinphils 0.2 thou/uL (0.0-0.7); #Lymphocytes 2.7 thou/uL (1.20-3.40); #Monocytes 0.6 thou/uL (0.11-0.59); %Basophils 0.6 % (0.0-1.0); %Eosinophils 2.2 % (0.0-10.0); %Lymphocytes 25.3 % (21.0-51.0); %Monocytes 5.7 % (0.0-10.0); %Neutrophils 66.2 % (42.0-75.0); Hemoglobin 9.9 g/dL (12.0-16.0); Mean Corpuscular HGB CONC 32.9 g/dL (32.0-36.0); Mean Corpuscular Hemoglobin 28.2 pg (27.0-31.0); Mean Corpuscular Volume 85.8 fL (78.0-98.0); Mean Platelet Volume 7.5 fL (7.4-10.4); Platelet Count 304 thou/uL (130-400); RBC Distribution Width 15.1 % (11.5-14.5); Red Blood Cell (RBC) Count 3.51 mill/uL (4.20-5.40); White Blood Cell (WBC) Count 10.6 thou/uL (4.8-10.8)
[2020-04-07 06:27] LABS: ALT (SGPT) 28 U/L (8-55); AST (SGOT) 21 U/L (5-34); Albumin 3.3 g/dL (3.5-5.0); Alkaline Phosphatase 125 U/L (40-110); Anion Gap 8 mmol/L (10-20); BUN (Urea Nitrogen) 14 mg/dL (7.0-18.7); Bilirubin, Total 0.3 mg/dL (0.2-1.2); Calc. Creatinine Clearance 119 mL/min (70-130); Calcium 8.2 mg/dL (7.8-10.44); Carbon Dioxide 22 mmol/L (22-29); Cardiac Risk 5.2 (Less than 4.5); Chloride 107 mmol/L (98-107); Cholesterol 155 mg/dl (< 200 Desired); Estimated GFR-MDRD Greater than 90; Globulin 2.9 g/dL (2.4-3.5); Glucose 83 mg/dL (70-105); HDL Cholesterol 30 mg/dL (>60 Neg Risk); LDL Cholesterol, Calculated 70 mg/dL; Lipase 86 U/L (8-78); Protein, Total 6.2 g/dL (6.0-8.3); Sodium 134 mmol/L (136-145); Triglycerides 277 mg/dL (Less than 150)
[2020-04-07] MEDS ORDERED: Famotidine/PF 20 mg/2ml Vial SLOW IVP SCH (09:00)
[2020-04-07] MEDS: Ondansetron PF 4 MG/2 ML Vial IVP PRN ×2 (09:00→17:58)
[2020-04-07 11:34] LABS: Amphetamine Not Detected (NotDetected); Barbiturates Screen Not Detected (NotDetected); Benzodiazepine Screen Not Detected (NotDetected); Cocaine Metabolite Screen Not Detected (NotDetected); Medtox Control Line Valid? VALID (VALID); Medtox Reader # READER 1; Methadone Not Detected (NotDetected); Methamphetamine Not Detected (NotDetected); Opiate Screen Not Detected (NotDetected); Oxycodone Screen Not Detected (NotDetected); Phencyclidine (PCP) Not Detected (NotDetected); THC/Cannabinoid Screen Detected (NotDetected); Tricyclic Screen Not Detected (NotDetected)
[2020-04-07] MEDS: traMADol HCl 50 MG TAB PO PRN ×2 (12:14→17:02)
[2020-04-07] MEDS: Pantoprazole 40 MG VIAL IVP SCH (14:46)
--- NOTE | 2020-04-07 15:15 | PDOC.EVN ---
Event Note - Event Note Event Note: Seen and examined. Medications reviewed. Pain medications adjusted, she states tylenol or tramadol help at home. All questions answered in detail. Non billable note only.
--- NOTE | 2020-04-07 17:04 | CON ---
DATE OF CONSULTATION: 04/07/2020 REASON FOR CONSULTATION: "Pancreatitis." CONSULTING PHYSICIAN: Dr. Edmond Salter. HISTORY OF PRESENT ILLNESS: Ms. Dubose came to the emergency room yesterday evening for left upper quadrant and left back pain. This has been going on for a couple of months. She reports that she sees Dr. Michael Card at [facility], has been on and off steroids and 5-ASA medicines for some time. It seems, more recently she has transferred her care to our practice, although I am not sure that she has been seen in our office at this point in time. Her Crohn disease history is significant for multiple colonic resections, ileocolonic anastomosis, and diverting ileostomy at one point in time. This began in about 2004 and her surgery with ileostomy and then takedown was in 2014. Early in her disease course, she was treated with 5-ASA, steroids, and immunomodulator such as azathioprine. Some time in high school, after her first surgery, she was put on Remicade. She was off that for a time and then more recently was tried on that at [facility] in September of this year, but had what sounds like serum sickness with arthritis and severe joint pains and could not take it. Now, she is waiting to get on Humira, however, she reports she was diagnosed with COVID sometime in early February at [facility] and they have not got her on her Humira yet. She reports that her COVID illness was quite mild. She never became really ill and she has been told that it is over. She has no cough, shortness of breath, or dyspnea on exertion. She still has some severe left upper quadrant pain, which radiates into her back at times. She reports that she has been told she has had pancreatitis going back two months and that goes along with her visit here in late January or early February. She denies alcohol use. She denies having gallbladder anymore. She is not taking immunomodulator therapy at this time. She is having loose stools. She reports that there is no blood, it is watery and it has been up to 10 times a day in the past couple of days. Presently, the discomfort is the main thing that bothers her. She denies any hematuria or urgency. She denies any history of kidney stones in the past. REVIEW OF SYSTEMS: Notable for arthralgias when she got Remicade. She has had rashes early on in her disease process of the Crohn's, but none now. She denies arthritis. She denies any ulcers or lesions in her mouth. She denies any thrush, dysphagia, odynophagia, melena, hematochezia, hematemesis, fever, chills, shortness of breath, dyspnea on exertion, or chest pain. PAST MEDICAL HISTORY: 1. Crohn disease, multiple small bowel resections with ileostomy for a time, then takedown. 2. Reflux. 3. History of chronic anemia. 4. History of kidney stones. 5. History of ovarian cyst. 6. History of gout, history of anxiety, history of pancreatitis in the past. PAST SURGICAL HISTORY: Ileostomy with reversal in 2014, cholecystectomy, tubal ligation, , appendectomy. SOCIAL HISTORY: The patient states she does not drink alcohol. She does smoke marijuana daily. She denies using other drugs. ALLERGIES: SHE STATES MORPHINE CAUSES VERY ERRATIC BEHAVIOR. MOST RECENT ENDOSCOPY IS HERE IN 03/2014, SHE HAD A COLONOSCOPY WITH A NORMAL ILEUM, ANASTOMOSIS IN THE RECTAL VAULT WITH NO EVIDENCE OF ACTIVE DISEASE AT THAT TIME. MEDICATIONS: Medications here, she was on; 1. Fentanyl. 2. Magnesium. 3. Zofran. 4. 2 L of saline in the emergency room. Home medications; it seems she was on nothing. Present medications; 1. Tylenol. 2. Benadryl. 3. Pepcid. 4. Fentanyl. 5. Zofran. 6. Normal saline at 100. 7. Some Ultram. PHYSICAL EXAMINATION: GENERAL: She is resting in bed. She has a heating pad over her abdomen. She is in no overt distress. HEENT: Oropharynx without lesions. NECK: Appears supple without any adenopathy. LUNGS: Clear. HEART: Regular rate and rhythm without clicks or murmurs. ABDOMEN: Soft and nontender. There is no rebound. There is no guarding. There is no palpable hepatosplenomegaly. There is no evidence of hernias, incisional or inguinal. There is no evidence of fistulas to the skin. EXTREMITIES: No clubbing, cyanosis, or edema. SKIN: Without rash or lesions. JOINTS: Without warmth or erythematous changes. VITAL SIGNS: Temperature is 98.4, T-max 99.1, pulse is 79, blood pressure 95/54. LABORATORY STUDIES: White count was 17,000 last night. Hemoglobin was 12.2, now it is 9.2. Platelet count 439 yesterday, 304 today. She has 66 segs, 25% lymphocytes. MCV is 85. Sodium 134, potassium 3, BUN and creatinine are 14 and 0.6, alkaline phosphatase 125, AST and ALT are 21 and 28, calcium 8.2, bilirubin 0.3. No inflammatory markers have been ordered. test negative on 03/19/2020. Triglycerides 277. Amylase was 187. Lipase was 350, now 86. Urinalysis showed 4 to 6 red blood cells, 4 to 6 white blood cells, no bacteria. Urine test negative on 04/06. Urine drug screen positive for cannabinoids, otherwise negative. IMAGING: CT chest on 03/19 showed no signs of pulmonary embolus and clear lungs. CT abdomen and pelvis on 04/06/2020 with IV contrast only, showed normal-appearing pancreatitis, postoperative changes consistent with previous colectomy, mild nonspecific prominence in loops of small bowel in left abdomen with some question of prominence, nonspecific enteritis was felt to be a possibility. Similar findings were seen in 2019. Prominent lymph node in the upper pelvis, seen back in 2015. ASSESSMENT: 1. Left flank pain of unclear etiology and left upper quadrant pain of unclear etiology. Her CAT scan reveals no etiology to this pain. She has no signs of shingles. I did not see any obvious signs of kidney stone on that imaging studies, and although she has a scant amount of blood in the urine, it is not unusual for her. 2. History of Crohn disease with multiple bowel resections and watery diarrhea over several days. It would be reasonable to rule out Clostridium difficile and other infections, and maybe she has an enteritis. We will go ahead and set her up for an upper and lower endoscopy tomorrow as the etiology of her symptoms is unclear and it does not appear she has pancreatitis. 3. Elevated lipase and amylase, mild, with no signs of pancreatitis on CAT scan. The etiology of her elevations was unknown. She may have a history of chronic pancreatitis. We will go ahead and order some stool studies now. We will follow along with you. Job ID: [id number]
[2020-04-07] MEDS: diphenhydrAMINE 25 MG CAP PO SCH (20:15)
[2020-04-08] MEDS: traMADol HCl 50 MG TAB PO PRN ×4 (00:08→17:49)
[2020-04-08] MEDS: Ondansetron ODT 4 MG TAB PO PRN ×3 (00:10→17:51)
[2020-04-08] MEDS: Fentanyl 100 MCG/2 ML VIAL SLOW IVP PRN ×4 (01:55→20:13)
[2020-04-08] MEDS: Sodium Chloride 0.9% 1,000 ML IV SCH ×2 (01:57→09:33)
[2020-04-08] MEDS: Acetaminophen 500 MG TAB PO PRN ×2 (05:03→20:18)
[2020-04-08] MEDS: Pantoprazole 40 MG VIAL IVP SCH (07:53)
[2020-04-08] MEDS ORDERED: NS 0.9% w/ 20 MEQ KCL 1,000 ML/1,000 ML BAG IV SCH (10:00)
[2020-04-08] MEDS ORDERED: Potassium Chloride 20 MEQ TAB PO SCH (10:00)
[2020-04-08] MEDS ORDERED: Cyanocobalamin (Vitamin B-12) 1,000 MCG TAB PO SCH (10:30)
[2020-04-08] MEDS: NS 0.9% w/ 20 MEQ KCL 1,000 ML/1,000 ML BAG IV SCH ×2 (11:29→17:31)
[2020-04-08 14:54] LABS: Hemoglobin 10.3 g/dL (12.0-16.0); Mean Corpuscular HGB CONC 33.2 g/dL (32.0-36.0); Mean Corpuscular Hemoglobin 28.7 pg (27.0-31.0); Mean Corpuscular Volume 86.4 fL (78.0-98.0); Platelet Count 235 thou/uL (130-400)
[2020-04-08 15:12] LABS: ALT (SGPT) 28 U/L (8-55); AST (SGOT) 26 U/L (5-34); Albumin 3.5 g/dL (3.5-5.0); Alkaline Phosphatase 124 U/L (40-110); Anion Gap 11 mmol/L (10-20); BUN (Urea Nitrogen) 8 mg/dL (7.0-18.7); Bilirubin, Total 0.2 mg/dL (0.2-1.2); Calc. Creatinine Clearance 116 mL/min (70-130); Calcium 8.4 mg/dL (7.8-10.44); Carbon Dioxide 18 mmol/L (22-29); Chloride 111 mmol/L (98-107); Estimated GFR-MDRD Greater than 90; Glucose 81 mg/dL (70-105); Iron 19 ug/dL (50-170); Iron Binding Capacity, Total 330 mcg/dL (265-497); Lipase 66 U/L (8-78); Potassium 3.1 mmol/L (3.5-5.1); Protein, Total 6.5 g/dL (6.0-8.3); Sodium 137 mmol/L (136-145)
[2020-04-08 15:14] LABS: Band 4 % (5-11); Lymphocytes 30 % (21-51); MDiff Complete? YES; Monocytes 9 % (0-10); Neutrophil 57 % (42-75); Platelet Morphology Comment Appears Adequate; Polychromasia SLIGHT = 2-3 cells (100X) (0-2/hpf)
[2020-04-08] MEDS: diphenhydrAMINE 25 MG CAP PO SCH (20:17)
[2020-04-09] MEDS: Fentanyl 100 MCG/2 ML VIAL SLOW IVP PRN ×4 (02:11→23:17)
[2020-04-09] MEDS: NS 0.9% w/ 20 MEQ KCL 1,000 ML/1,000 ML BAG IV SCH ×3 (02:14→15:07)
[2020-04-09] MEDS: Cyanocobalamin (Vitamin B-12) 1,000 MCG TAB PO SCH (09:09)
[2020-04-09] MEDS: Pantoprazole 40 MG VIAL IVP SCH (09:09)
--- NOTE | 2020-04-09 09:11 | PRG ---
DATE OF SERVICE: 04/08/2020 This is a cross-coverage for Chandra You. SUBJECTIVE: A 35-year-old Crohn disease, status post multiple surgeries. She apparently has had a total colectomy The patient also has abdominal pain. It is over the left upper quadrant. Also complained of diarrhea with watery stools . The patient has had stool studies that came back negative. Abdominal CAT scan pancreatic small bowel appears normal . The patient appears very comfortable and . The diarrhea is actually better today and she question about recent Crohn disease. She tells me nobody wants to see her questioning her workup for Crohn disease. OBJECTIVE: GENERAL: Appears comfortable, in no acute distress. VITAL SIGNS: Stable. Afebrile. CARDIOVASCULAR: CLINICAL IMPRESSION: 1. History of Crohn disease . She is kind of very vague about her . 2. Mildly elevated amylase and lipase but CAT scan is negative. Abdominal exam is . 3. Diarrhea . RECOMMENDATIONS: 1. Continue diet as tolerated. 2. . 3. hospitalist . Job ID: [id number]
--- NOTE | 2020-04-09 12:58 | PDOC.HOSPP ---
- Subjective Encounter Date: 04/08/20 Encounter Time: 10:30 Subjective: pt up in bed no complains - Objective Vital Signs & Weight: Vital Signs (12 hours) Temp Pulse Resp BP Pulse Ox 04/09/20 08:00 98.5 F 95 18 99/56 L 100 Weight Weight 142 lb 9.6 oz I&O: 04/08/20 04/09/20 04/10/20 06:59 06:59 06:59 Intake Total 3340 7201 Balance 3340 7201 Result Diagrams: 04/08/20 12:27 04/08/20 12:27 Hospitalist ROS - Review of Systems Cardiovascular: denies: chest pain, palpitations, orthopnea, paroxysmal noc. dyspnea, edema, light headedness, other Gastrointestinal: reports: abdominal pain, diarrhea. denies: nausea, vomiting, constipation, melena, hematochezia, other Genitourinary: denies: dysuria, frequency, incontinence, hematuria, retention, other - Medication Medications: Active Medications Generic Name Dose Route Start Last Admin Trade Name Freq PRN Reason Stop Dose Admin Acetaminophen 1,000 mg 04/07/20 00:22 04/08/20 20:18 Tylenol PO 1,000 mg Q6H PRN Administration Mild Pain (1-3) Cyanocobalamin 1,000 mcg 04/09/20 09:00 04/09/20 09:09 Vitamin B-12 PO 1,000 mcg DAILY EAN Administration Diphenhydramine HCl 25 mg 04/07/20 21:00 04/08/20 20:17 Benadryl PO 25 mg QPM EAN Administration Fentanyl 12.5 mcg 04/07/20 11:49 04/09/20 09:18 Sublimaze SLOW IVP 12.5 mcg Q6H PRN Administration Moderate to Severe Pain (6-10) Potassium Chloride/Sodium Chloride 1,000 ml in 1,000 mls @ 150 mls/hr 10:00 04/09/20 09:06 Ns 0.9% W/ 20 Meq Kcl IV 1,000 mls .Q6H40M EAN Administration Ondansetron HCl 4 mg 04/07/20 00:22 04/08/20 17:51 Zofran Odt PO 4 mg Q6H PRN Administration Nausea/Vomiting Ondansetron HCl 4 mg 04/07/20 00:22 04/07/20 17:58 Zofran IVP 4 mg Q6H PRN Administration Nausea/Vomiting Pantoprazole Sodium 40 mg 04/07/20 09:00 04/09/20 09:09 Protonix IVP 40 mg DAILY EAN Administration Sodium Chloride 10 ml 04/08/20 05:54 04/09/20 02:11 Flush - Normal Saline IVF 10 ml PRN PRN Administration Saline Flush Tramadol HCl 50 mg 04/07/20 11:45 04/08/20 05:02 Ultram PO 50 mg Q4H PRN Administration Moderate Pain (4-6) Tramadol HCl 100 mg 04/07/20 11:47 04/08/20 17:49 Ultram PO 100 mg Q4H PRN Administration Moderate to Severe Pain (6-10) - Exam Heart: negative: RRR, no murmur, no gallops, no rubs, normal peripheral pulses, irregular, diminshed peripheral pulses, murmur present, II/IV, III/IV Respiratory: negative: CTAB, no wheezes, no rales, no ronchi, normal chest expansion, no tachypnea, normal percussion, rales, rhonchi, tachypneic, wheezes Gastrointestinal: soft, non-distended, normal bowel sounds Extremities: negative: no cyanosis, no clubbing, no edema, 1+ LE edema, 2+ LE edema, clubbing Hosp A/P (1) Pancreatitis Code(s): K85.90 - ACUTE PANCREATITIS WITHOUT NECROSIS OR INFECTION, UNSP Status: Acute (2) Diarrhea Code(s): R19.7 - DIARRHEA, UNSPECIFIED Status: Acute (3) Abdominal pain Code(s): R10.9 - UNSPECIFIED ABDOMINAL PAIN Status: Acute (4) Crohn disease Code(s): K50.90 - CROHN'S DISEASE, UNSPECIFIED, WITHOUT COMPLICATIONS Status: Acute (5) Elevated lipase Code(s): R74.8 - ABNORMAL LEVELS OF OTHER SERUM ENZYMES Status: Acute - Plan pt up in bed complain so pain of abdomen pain. Her diarrhea has improved compared to yesterday.
[2020-04-09 13:33] LABS: #Eosinphils 0.2 thou/uL (0.0-0.7); #Lymphocytes 1.6 thou/uL (1.20-3.40); #Monocytes 0.4 thou/uL (0.11-0.59); %Basophils 0.4 % (0.0-1.0); %Eosinophils 1.9 % (0.0-10.0); %Lymphocytes 17.4 % (21.0-51.0); %Monocytes 4.4 % (0.0-10.0); %Neutrophils 75.9 % (42.0-75.0); Mean Corpuscular HGB CONC 32.5 g/dL (32.0-36.0); Mean Corpuscular Hemoglobin 28.7 pg (27.0-31.0); Mean Corpuscular Volume 88.1 fL (78.0-98.0); Mean Platelet Volume 7.3 fL (7.4-10.4); Platelet Count 276 thou/uL (130-400); RBC Distribution Width 14.8 % (11.5-14.5); White Blood Cell (WBC) Count 9.3 thou/uL (4.8-10.8)
[2020-04-09 13:57] LABS: ALT (SGPT) 28 U/L (8-55); AST (SGOT) 27 U/L (5-34); Albumin 3.3 g/dL (3.5-5.0); Alkaline Phosphatase 114 U/L (40-110); Anion Gap 12 mmol/L (10-20); BUN (Urea Nitrogen) 4 mg/dL (7.0-18.7); Bilirubin, Total 0.2 mg/dL (0.2-1.2); Calc. Creatinine Clearance 125 mL/min (70-130); Calcium 8.3 mg/dL (7.8-10.44); Carbon Dioxide 13 mmol/L (22-29); Chloride 117 mmol/L (98-107); Estimated GFR-MDRD Greater than 90; Glucose 93 mg/dL (70-105); Magnesium 1.4 mg/dL (1.6-2.6); Potassium 3.7 mmol/L (3.5-5.1); Protein, Total 6.3 g/dL (6.0-8.3); Sodium 138 mmol/L (136-145)
--- NOTE | 2020-04-09 16:30 | PDOC.HOSPP ---
- Subjective Encounter Date: 04/09/20 Encounter Time: 16:25 Subjective: pt up in bed walking around. - Objective Vital Signs & Weight: Vital Signs (12 hours) Temp Pulse Resp BP Pulse Ox 04/09/20 08:00 98.5 F 95 18 99/56 L 100 Weight Weight 142 lb 9.6 oz I&O: 04/08/20 04/09/20 04/10/20 06:59 06:59 06:59 Intake Total 3340 7201 Balance 3340 7201 Result Diagrams: 04/09/20 13:26 04/09/20 13:26 Hospitalist ROS - Review of Systems Cardiovascular: denies: chest pain, palpitations, orthopnea, paroxysmal noc. dyspnea, edema, light headedness, other Gastrointestinal: denies: nausea, vomiting, abdominal pain, diarrhea, constipation, melena, hematochezia, other Genitourinary: denies: dysuria, frequency, incontinence, hematuria, retention, other - Medication Medications: Active Medications Generic Name Dose Route Start Last Admin Trade Name Freq PRN Reason Stop Dose Admin Acetaminophen 1,000 mg 04/07/20 00:22 04/08/20 20:18 Tylenol PO 1,000 mg Q6H PRN Administration Mild Pain (1-3) Cyanocobalamin 1,000 mcg 04/09/20 09:00 04/09/20 09:09 Vitamin B-12 PO 1,000 mcg DAILY EAN Administration Diphenhydramine HCl 25 mg 04/07/20 21:00 04/08/20 20:17 Benadryl PO 25 mg QPM EAN Administration Fentanyl 12.5 mcg 04/07/20 11:49 04/09/20 15:07 Sublimaze SLOW IVP 12.5 mcg Q6H PRN Administration Moderate to Severe Pain (6-10) Potassium Chloride/Sodium Chloride 1,000 ml in 1,000 mls @ 150 mls/hr 10:00 04/09/20 15:07 Ns 0.9% W/ 20 Meq Kcl IV 1,000 mls .Q6H40M EAN Administration Ondansetron HCl 4 mg 04/07/20 00:22 04/08/20 17:51 Zofran Odt PO 4 mg Q6H PRN Administration Nausea/Vomiting Ondansetron HCl 4 mg 04/07/20 00:22 04/07/20 17:58 Zofran IVP 4 mg Q6H PRN Administration Nausea/Vomiting Pantoprazole Sodium 40 mg 04/07/20 09:00 04/09/20 09:09 Protonix IVP 40 mg DAILY EAN Administration Sodium Chloride 10 ml 04/08/20 05:54 04/09/20 02:11 Flush - Normal Saline IVF 10 ml PRN PRN Administration Saline Flush Tramadol HCl 50 mg 04/07/20 11:45 04/08/20 05:02 Ultram PO 50 mg Q4H PRN Administration Moderate Pain (4-6) Tramadol HCl 100 mg 04/07/20 11:47 04/08/20 17:49 Ultram PO 100 mg Q4H PRN Administration Moderate to Severe Pain (6-10) - Exam Neck: negative: supple, symmetric, no JVD, no thyromegaly, no lymphadenopathy, no carotid bruit, JVD Heart: negative: RRR, no murmur, no gallops, no rubs, normal peripheral pulses, irregular, diminshed peripheral pulses, murmur present, II/IV, III/IV Respiratory: negative: CTAB, no wheezes, no rales, no ronchi, normal chest expansion, no tachypnea, normal percussion, rales, rhonchi, tachypneic, wheezes Gastrointestinal: soft, normal bowel sounds Gastrointestinal - other findings: mild pain on palpation of lUQ Hosp A/P (1) Pancreatitis Code(s): K85.90 - ACUTE PANCREATITIS WITHOUT NECROSIS OR INFECTION, UNSP Status: Acute (2) Diarrhea Code(s): R19.7 - DIARRHEA, UNSPECIFIED Status: Acute (3) Abdominal pain Code(s): R10.9 - UNSPECIFIED ABDOMINAL PAIN Status: Acute (4) Crohn disease Code(s): K50.90 - CROHN'S DISEASE, UNSPECIFIED, WITHOUT COMPLICATIONS Status: Acute (5) Elevated lipase Code(s): R74.8 - ABNORMAL LEVELS OF OTHER SERUM ENZYMES Status: Acute - Plan pt up in bed complain so pain of abdomen pain. Her diarrhea has improved compared to yesterday. 04/09 pt's stool studies negative. will advance diet. will check labs in am. possible discharge in am if she continues to improve clinically.
[2020-04-09] MEDS ORDERED: Lactated Ringer's 1,000 ML IV SCH (16:45)
[2020-04-09] MEDS ORDERED: Magnesium 2 GM/50 ML 2 GM in Premix Bag 1 BAG IVPB SCH (16:45)
[2020-04-09] MEDS: traMADol HCl 50 MG TAB PO PRN ×2 (19:29→19:34)
[2020-04-09] MEDS: Ondansetron ODT 4 MG TAB PO PRN (19:34)
[2020-04-09] MEDS: diphenhydrAMINE 25 MG CAP PO SCH (21:06)
[2020-04-09] MEDS: Acetaminophen 500 MG TAB PO PRN (23:25)
[2020-04-10] MEDS: traMADol HCl 50 MG TAB PO PRN ×2 (02:56→08:55)
[2020-04-10 06:06] LABS: #Eosinphils 0.3 thou/uL (0.0-0.7); #Lymphocytes 2.1 thou/uL (1.20-3.40); #Monocytes 0.4 thou/uL (0.11-0.59); #Neutrophils 4.4 thou/uL (1.40-6.50); %Basophils 0.5 % (0.0-1.0); %Eosinophils 3.9 % (0.0-10.0); %Lymphocytes 28.9 % (21.0-51.0); %Monocytes 5.4 % (0.0-10.0); %Neutrophils 61.3 % (42.0-75.0); Hemoglobin 8.8 g/dL (12.0-16.0); Mean Corpuscular HGB CONC 32.8 g/dL (32.0-36.0); Mean Corpuscular Hemoglobin 28.1 pg (27.0-31.0); Mean Corpuscular Volume 85.7 fL (78.0-98.0); Mean Platelet Volume 7.6 fL (7.4-10.4); Platelet Count 246 thou/uL (130-400); RBC Distribution Width 14.8 % (11.5-14.5); Red Blood Cell (RBC) Count 3.13 mill/uL (4.20-5.40); White Blood Cell (WBC) Count 7.2 thou/uL (4.8-10.8)
[2020-04-10 06:26] LABS: Anion Gap 9 mmol/L (10-20); BUN (Urea Nitrogen) 4 mg/dL (7.0-18.7); Calc. Creatinine Clearance 136 mL/min (70-130); Calcium 8.2 mg/dL (7.8-10.44); Carbon Dioxide 19 mmol/L (22-29); Chloride 114 mmol/L (98-107); Estimated GFR-MDRD Greater than 90; Glucose 76 mg/dL (70-105); Potassium 3.2 mmol/L (3.5-5.1); Sodium 139 mmol/L (136-145)
[2020-04-10 08:16] VITALS: BP 110/55; TEMP 98.3
[2020-04-10] MEDS: Cyanocobalamin (Vitamin B-12) 1,000 MCG TAB PO SCH (08:56)
[2020-04-10] MEDS: Pantoprazole 40 MG VIAL IVP SCH (08:57)
[2020-04-10] MEDS ORDERED: Potassium Chloride 20 MEQ TAB PO SCH (10:45)
--- NOTE | 2020-04-10 12:11 | PRG ---
DATE OF SERVICE: 04/10/2020 SUBJECTIVE: The patient states that she is feeling a lot better today. Diarrhea seems to have slowed down. She is still having some pain in the left upper quadrant, but they are much improved from admission. She is tolerating her diet. She is otherwise clinically stable and wanting to go home today. OBJECTIVE: VITAL SIGNS: Temperature 98.3, pulse 73, blood pressure 110/55, 98% oxygen saturation on room air. GENERAL: In no acute distress, sitting up in chair comfortably. HEART: Regular rate and rhythm. LUNGS: Clear to auscultation bilaterally. ABDOMEN: Soft, nontender to palpation. EXTREMITIES: No peripheral edema. LABORATORY STUDIES: Hemoglobin 8.8, WBC 7.2, platelets 246. Sodium 139, potassium 3.2, BUN 4, creatinine 0.58, calcium 8.2. ASSESSMENT AND PLAN: 1. Left upper quadrant pain, improved since admission. 2. Crohn disease, with complicated surgical history of multiple resections, including colectomy. The patient has had great clinical improvement over the past few days and is anticipating hospital discharge today. That appears appropriate from a GI perspective. It is unclear whether this pain flare represented Crohn disease activity or not. Hold off on any steroid administration for now. In the longer term, the patient continues to follow up with [facility], and her stated plan is to get started on Humira in the coming weeks. I advised her to follow through with this. GI will sign off. Please call back anytime with questions or concerns. Job ID: [id number]
--- NOTE | 2020-04-11 14:19 | DIS ---
DATE OF ADMISSION: 04/06/2020 DATE OF DISCHARGE: 04/10/2020 DISCHARGE DIAGNOSES: As of the following. 1. Abdominal pain. 2. Pancreatitis, resolved. 3. Crohn disease. 4. Elevated lipase. HOSPITAL COURSE: The patient is a 35-year-old female, who initially presented to the hospital with complaints of abdominal pain. She has a history of Crohn disease, has been off her medications due to insurance issues. Please refer to the H and P for further details. The patient initially was found to have a lipase of 350. She underwent a CT of abdomen and pelvis and GI was consulted. Her CT of abdomen and pelvis showed evidence of colectomy. She had some prominent loops of small bowel scattered within the abdomen with fluid-filled within suggesting of mild thickening; however, her pancreas was within normal limits. The patient at this time was watched for a few days. She was hydrated and also pain control and antinausea medication was administered. The patient continued to improve and at this time, she was able to tolerate oral food. She was seen by GI, who recommended the patient to be discharged and follow up as an outpatient. The patient has Humira that has been prescribed from her other GI doctor at [facility]. I have asked her to follow up with that and start it as soon as possible and to follow up with her GI doctor. HOME MEDICATIONS: Will be the following; 1. Pepcid 20 mg twice a day. 2. Bentyl 10 mg q.6 p.r.n. 3. Zofran 4 mg p.r.n. 4. Benadryl as needed. PHYSICAL EXAMINATION: VITAL SIGNS: On discharge are 98.3, 73, 18, 98% on room air, and 110/55. GENERAL: She is awake, alert, and oriented x3. Does not appear in distress. CV: S1 and S2 present. No murmurs, rubs, or gallops. ABDOMEN: Soft and nontender. Bowel sounds are present x2. PLAN: Again, she will be discharged home. She will follow up with her primary. I have advised her to eat things with potassium especially bananas. Again, the patient will follow up with GI doctor. Job ID: [id number]
--- NOTE | 2020-04-12 06:44 | PQF ---
CLINICAL DOCUMENTATION CLARIFICATION FORM: Dear : Maren Torres Date / Time: 04/12/20643 Please exercise your independent, professional judgment in responding to the clarification form. Clinical indicators are provided on the bottom of this form for your review Please check appropriate box(es) to clarify if the following diagnosis has been ruled in our ruled out: Acute Pancreatitis [ ] Ruled in diagnosis [ x] Continue to treat [ ] Resolved [ ] Ruled out diagnosis [ ] Improving [ ] Cannot rule out diagnosis [ ] Other diagnosis [ ] Unable to determine Physician Signature: Date/Time: For continuity of documentation, please document condition throughout progress notes and discharge summary. Thank You. To be completed by CDI/Coding staff for physician review: Present Clinical Indicators - Signs / Symptoms / Labs Results and Location in Medical Record [X] Amylase 187.0, Lipase 350, Trigyceride 277 Laboratory Chemistry 04/06 [X] BP 101/76, Pulse 82, Resp 19, Temp 98.4 Vital signs 04/06 [X] complaining of approximately 4-weeks hx of persistent abdominal pain in left upper quadrant H&p p1 04/06 Dr Oliva [X] Abdominal pain secondary to Acute on chronic pancreatitis H&p p3 04/06 Dr Oliva [X] Elevated lipase and amylase, mild with no signs of pancreatitis on Cat scan Consult Catalino Anna 04/07 [X] Left flank pain of unclear etiology and left upper quadrant unclear etiology Consult Catalino Anna 04/07 Present Risk Factors Results and Location in Medical Record [X] Chronic Pancreatitis H&p p1 04/06 Dr Oliva [X] Marijuana Abuse H&p p1 04/06 Dr Oliva [X] Crohns Disease H&p p1 04/06 Dr Oliva [X] Former Smoker ED Notes 04/06 Present Treatments Results and Location in Medical Record [X] Ultram 50 mg oral MAR 04/07 [X] IVF NS 1L NOV 19 [X] IV Protonix 40 mg NOV 19 [X] Ct Abdomen Imaging 04/06 Dr Le [X] GE Consult Consult Catalino Anna 04/07 [facility] [employer] Signature: Teodora Andrews Phone #: [phone] Date/Time: 04/12/20643 This is a permanent part of the Medical Record [facility]
--- NOTE | 2020-04-12 06:46 | PQF ---
CLINICAL DOCUMENTATION CLARIFICATION FORM: Dear : Maren Torres Date / Time: 04/12/20 0645 Please exercise your independent, professional judgment in responding to the clarification form. Clinical indicators are provided on the bottom of this form for your review In your clinical opinion based on clinical findings below, can you please identify the etiology of Left upper quadrant abdominal pain if due to: Please check appropriate box(es): [ x ] Acute Pancreatitis [ ] Crohns Disease [ ] Other diagnosis [ ] Unable to determine Physician Signature: Date/Time: For continuity of documentation, please document condition throughout progress notes and discharge summary. Thank You. To be completed by CDI/Coding staff for physician review: Present Clinical Indicators - Signs / Symptoms / Labs Results and Location in Medical Record [X] Amylase 187.0, Lipase 350, Trigyceride 277 Laboratory Chemistry 04/06 [X] C Diff Assay: Negative Microbiology 04/07 [X] BP 101/76, Pulse 82, Resp 19, Temp 98.4 Vital signs 04/06 [X] complaining of approximately 4-weeks hx of persistent abdominal pain in left upper quadrant H&p p1 04/06 Dr Oliva [X] Abdominal pain secondary to Acute on chronic pancreatitis H&p p3 04/06 Dr Oliva [X] Elevated lipase and amylase, mild with no signs of pancreatitis on Cat scan Consult Catalino Anna 04/07 [X] Left flank pain of unclear etiology and left upper quadrant unclear etiology Consult Catalino Anna 04/07 [X] Unclear whether this pain flare represented Crohn disease activity of not PN p1 04/06 Dr Ponce Present Risk Factors Results and Location in Medical Record [X] Chronic Pancreatitis H&p p1 04/06 Dr Oliva [X] Marijuana Abuse H&p p1 04/06 Dr Oliva [X] Crohns Disease H&p p1 04/06 Dr Oliva [X] History of SBO ED Notes 04/06 [X] GERD ED Notes 04/06 [X] History of IBS ED Notes 04/06 [X] Former Smoker ED Notes 04/06 Present Treatments Results and Location in Medical Record [X] Ultram 50 mg oral MAR 04/07 [X] IVF NS 1L MAR 04/07 [X] IV Protonix 40 mg MAR 04/07 [X] C Diff Assay Microbiology 04/07 [X] Ct Abdomen Imaging 04/06 Dr Le [X] GE Consult Consult Catalino Anna 04/07 [facility] Account Manager Signature: Teodora Torre Darryl Phone #: ext [phone] Date/Time: 04/12/20 0618 This is a permanent part of the Medical Record [facility]
== END 2020-04-10 14:15 | disposition home or self-care (01) | DRG 439 ==
LOC: ERS 16:33 → OBSVTOIN 20:28 → ONC 20:28
PROVIDERS: ADMIT Internal Medicine; ATTEND Internal Medicine
DX: K85.90 Acute pancreatitis without necrosis or infection, unspecified (principal); K50.90 Crohn's disease, unspecified, without complications; K86.1 Other chronic pancreatitis; M10.9 Gout, unspecified; E87.6 Hypokalemia; F12.10 Cannabis abuse, uncomplicated; K21.9 Gastro-esophageal reflux disease without esophagitis; F41.9 Anxiety disorder, unspecified; Z90.49 Acquired absence of other specified parts of digestive tract; Z98.51 Tubal ligation status; Z90.722 Acquired absence of ovaries, bilateral; Z86.19 Personal history of other infectious and parasitic diseases; Z79.899 Other long term (current) drug therapy; Z88.5 Allergy status to narcotic agent; Z88.2 Allergy status to sulfonamides
CPT/HCPCS: 36415; 36600; 74177; 80048; 80053; 80061; 80306; 81003; 81015; 81025; 82150; 82607; 82746; 83540; 83550; 83630; 83690; 83735; 85025; 85652; 86140; 86141; 87015; 87045; 87046; 87206; 87324; 87328; 87329; 87427; 87449; 87798; 93005; 96361; 96365; 96366; 96375; 96376; C9113; G0378; J2405; J3010; J3475; J3480; Q0162; Q0163; Q9967; S0028

== ENCOUNTER 2022-03-27 09:51 | Inpatient (IN) | payer BC, OTHER ==
[~2022-03-27 09:51] MED LIST changes: +Iopamidol 370 76% 100 ML VIAL ONE; -Iopamidol-370 76% 500 ML 1 ML ONE
[2022-03-27 10:35] LABS: Pregnancy Test - Urine (BHCG) Negative (Negative); Pregu Control Background? CLEAR/WHITE (CLR/WHITE); Pregu Control Bar Appear? YES (CONTROL BAR); Specific Gravity 1.026 (1.002-1.036)
[2022-03-27 10:36] LABS: Bilirubin 1+ (Negative); Blood, Urine Trace (Negative); Clarity Clear (Clear); Glucose, Urine (Dipstick) Normal (Negative); Ketone, Urine 10 mg/dL (Negative); Leukocyte Negative Leu/uL (Negative); Nitrite Negative (Negative); Protein, Urine (Dipstick) 200 mg/dL (Neg-Trace); Specific Gravity, Urine 1.026 (1.002-1.036); Squamous Epithelial 0-3 HPF (0-3); Urobilinogen 3 mg/dL (Less than 2); pH, Urine 6.5 (5.0-9.0)
[2022-03-27] MEDS ORDERED: Fentanyl 100 MCG/2 ML VIAL ONE (10:38)
[2022-03-27] MEDS ORDERED: Ondansetron PF 4 MG/2 ML Vial ONE ×2 (10:38→12:28)
[2022-03-27 10:39] LABS: #Eosinphils 0.1 thou/uL (0.0-0.7); #Lymphocytes 3.3 thou/uL (1.20-3.40); #Monocytes 0.7 thou/uL (0.11-0.59); #Neutrophils 11.4 thou/uL (1.40-6.50); %Basophils 0.2 % (0.0-1.0); %Eosinophils 0.8 % (0.0-10.0); %Lymphocytes 21.4 % (21.0-51.0); %Monocytes 4.5 % (0.0-10.0); %Neutrophils 73.2 % (42.0-75.0); Hemoglobin 14.1 g/dL (12.0-16.0); Mean Corpuscular HGB CONC 34.6 g/dL (32.0-36.0); Mean Corpuscular Hemoglobin 28.2 pg (27.0-31.0); Mean Corpuscular Volume 81.6 fL (78.0-98.0); Mean Platelet Volume 6.9 fL (7.4-10.4); Platelet Count 571 thou/uL (130-400); RBC Distribution Width 14.5 % (11.5-14.5); White Blood Cell (WBC) Count 15.5 thou/uL (4.8-10.8)
[2022-03-27 10:42] LABS: Bacteria/HPF 1+ HPF (None Seen)
[2022-03-27 11:17] LABS: Albumin 4.8 g/dL (3.5-5.0)
[2022-03-27 11:18] LABS: Chloride 100 mmol/L (98-107); Potassium 3.4 mmol/L (3.5-5.1); Sodium 133 mmol/L (136-145)
[2022-03-27 11:19] LABS: Calcium 11.1 mg/dL (7.8-10.44)
[2022-03-27 11:20] LABS: Glucose 124 mg/dL (70-105); Protein, Total 9.8 g/dL (6.0-8.3)
[2022-03-27 11:21] LABS: Anion Gap 21 mmol/L (10-20); Carbon Dioxide 15 mmol/L (22-29)
[2022-03-27 11:22] LABS: Alkaline Phosphatase 159 U/L (40-110); Bilirubin, Total 0.4 mg/dL (0.2-1.2)
[2022-03-27 11:23] LABS: Calc. Creatinine Clearance 0 mL/min (70-130); Estimated GFR 61
[2022-03-27 11:24] LABS: BUN (Urea Nitrogen) 31 mg/dL (7.0-18.7); CK (CPK) 16 U/L (29-168)
[2022-03-27 11:25] LABS: AST (SGOT) 27 U/L (5-34)
[2022-03-27 11:26] LABS: ALT (SGPT) 21 U/L (8-55); Lipase 170 U/L (8-78)
[2022-03-27] MEDS ORDERED: Ketorolac Tromethamine 30 MG/ML VIAL ONE (12:28)
[2022-03-27] MEDS ORDERED: Vancomycin 1 GM/200 ML BAG ONE (12:28)
[2022-03-27] MEDS ORDERED: Piperacillin/Tazobactam 3.375 GM in Sodium Chloride 0.9% 100 ML IVPB SCH (12:45)
[2022-03-27] MEDS ORDERED: Ondansetron PF 4 MG/2 ML Vial IVP PRN ×2 (13:43→13:48)
[2022-03-27] MEDS ORDERED: Acetaminophen 325 MG TAB PO PRN (13:43)
[2022-03-27] MEDS ORDERED: Fentanyl 100 MCG/2 ML VIAL SLOW IVP PRN (14:08)
[2022-03-27] MEDS ORDERED: Pantoprazole 40 MG VIAL IVP SCH ×2 (14:11→14:15)
[2022-03-27] MEDS: Lactated Ringer's 1,000 ML IV SCH ×2 (15:07→23:59)
[2022-03-27] MEDS: Promethazine HCl 12.5 MG in Sodium Chloride 0.9% 50 ML IVPB PRN (17:05)
[2022-03-27] MEDS ORDERED: Acetaminophen 500 MG TAB PO PRN (17:55)
[2022-03-27] MEDS ORDERED: Potassium Chloride 20 MEQ TAB PO SCH (18:15)
[2022-03-27 18:33] VITALS: BMI 25.9
[2022-03-27] MEDS: Pantoprazole 40 MG VIAL IVP SCH (19:13)
[2022-03-27] MEDS: Fentanyl 100 MCG/2 ML VIAL SLOW IVP PRN ×2 (19:13→23:35)
[2022-03-28] MEDS: Promethazine HCl 12.5 MG in Sodium Chloride 0.9% 50 ML IVPB PRN ×4 (00:10→23:03)
[2022-03-28] MEDS: Fentanyl 100 MCG/2 ML VIAL SLOW IVP PRN ×3 (03:39→11:39)
[2022-03-28 07:02] LABS: #Eosinphils 0.1 thou/uL (0.0-0.7); #Lymphocytes 1.9 thou/uL (1.20-3.40); #Monocytes 0.5 thou/uL (0.11-0.59); #Neutrophils 5.8 thou/uL (1.40-6.50); %Basophils 0.1 % (0.0-1.0); %Eosinophils 1.7 % (0.0-10.0); %Lymphocytes 22.6 % (21.0-51.0); %Monocytes 6.4 % (0.0-10.0); %Neutrophils 69.2 % (42.0-75.0); Hemoglobin 8.9 g/dL (12.0-16.0); Mean Corpuscular Hemoglobin 28.1 pg (27.0-31.0); Mean Platelet Volume 6.9 fL (7.4-10.4); Platelet Count 299 thou/uL (130-400); RBC Distribution Width 14.4 % (11.5-14.5); Red Blood Cell (RBC) Count 3.17 mill/uL (4.20-5.40); White Blood Cell (WBC) Count 8.4 thou/uL (4.8-10.8)
[2022-03-28 07:27] LABS: ALT (SGPT) 12 U/L (8-55); AST (SGOT) 15 U/L (5-34); Albumin 3.1 g/dL (3.5-5.0); Alkaline Phosphatase 87 U/L (40-110); Anion Gap 16 mmol/L (10-20); BUN (Urea Nitrogen) 26 mg/dL (7.0-18.7); Bilirubin, Total Less than 0.2 mg/dL (0.2-1.2); Calc. Creatinine Clearance 120 mL/min (70-130); Calcium 8.7 mg/dL (7.8-10.44); Carbon Dioxide 15 mmol/L (22-29); Chloride 109 mmol/L (98-107); Estimated GFR 115; Globulin 2.8 g/dL (2.4-3.5); Glucose 100 mg/dL (70-105); Protein, Total 5.9 g/dL (6.0-8.3); Sodium 137 mmol/L (136-145)
[2022-03-28] MEDS: Lactated Ringer's 1,000 ML IV SCH ×3 (08:33→23:05)
[2022-03-28] MEDS ORDERED: Potassium Chloride 20 MEQ TAB PO SCH (09:00)
[2022-03-28] MEDS: Acetaminophen 500 MG TAB PO SCH ×3 (09:16→21:13)
[2022-03-28] MEDS: Pantoprazole 40 MG VIAL IVP SCH ×2 (09:17→21:13)
[2022-03-28 10:01] LABS: Hemoglobin 9.5 g/dL (12.0-16.0)
[2022-03-28] MEDS ORDERED: Fentanyl 100 MCG/2 ML VIAL SLOW IVP PRN (12:19)
[2022-03-28 12:40] LABS: Iron 22 ug/dL (50-170); Iron Binding Capacity, Total 316 mcg/dL (265-497)
[2022-03-28 16:59] LABS: Campy jejuni + coli by PCR Negative (Negative); STEC Shiga Toxin 1+2 Negative (Negative); Salmonella spp. by PCR Negative (Negative); Shigella spp + EIEC by PCR Negative (Negative)
[2022-03-28] MEDS ORDERED: HYDROcodone/Acetaminophen 5/325 mg Tablet PO SCH (17:45)
[2022-03-28] MEDS: HYDROcodone/Acetaminophen 5/325 mg Tablet PO PRN (23:02)
[2022-03-29] MEDS: Lactated Ringer's 1,000 ML IV SCH ×4 (05:29→20:00)
[2022-03-29] MEDS: Acetaminophen 500 MG TAB PO SCH ×3 (05:29→20:31)
[2022-03-29] MEDS: HYDROcodone/Acetaminophen 5/325 mg Tablet PO PRN ×3 (05:30→17:48)
[2022-03-29] MEDS: Promethazine HCl 12.5 MG in Sodium Chloride 0.9% 50 ML IVPB PRN ×3 (05:30→17:48)
[2022-03-29 07:25] LABS: Hemoglobin 8.1 g/dL (12.0-16.0); Mean Corpuscular HGB CONC 33.7 g/dL (32.0-36.0); Mean Corpuscular Hemoglobin 28.8 pg (27.0-31.0); Mean Corpuscular Volume 85.5 fL (78.0-98.0); Mean Platelet Volume 6.7 fL (7.4-10.4); Platelet Count 240 thou/uL (130-400); RBC Distribution Width 14.2 % (11.5-14.5); Red Blood Cell (RBC) Count 2.81 mill/uL (4.20-5.40); White Blood Cell (WBC) Count 7.3 thou/uL (4.8-10.8)
[2022-03-29 07:42] LABS: ALT (SGPT) 13 U/L (8-55); AST (SGOT) 18 U/L (5-34); Albumin 2.8 g/dL (3.5-5.0); Alkaline Phosphatase 79 U/L (40-110); Anion Gap 11 mmol/L (10-20); BUN (Urea Nitrogen) 14 mg/dL (7.0-18.7); Bilirubin, Total 0.3 mg/dL (0.2-1.2); CRP (Inflammatory) 1.19 mg/dL (= or < 0.5); Calc. Creatinine Clearance 137 mL/min (70-130); Calcium 8.4 mg/dL (7.8-10.44); Carbon Dioxide 20 mmol/L (22-29); Chloride 112 mmol/L (98-107); Estimated GFR 119; Globulin 2.7 g/dL (2.4-3.5); Glucose 83 mg/dL (70-105); Potassium 3.4 mmol/L (3.5-5.1); Protein, Total 5.5 g/dL (6.0-8.3); Sodium 140 mmol/L (136-145)
[2022-03-29] MEDS: Pantoprazole 40 MG VIAL IVP SCH (08:06)
[2022-03-29] MEDS ORDERED: Potassium Chloride 20 MEQ TAB PO SCH (09:15)
[2022-03-29] MEDS ORDERED: Pantoprazole 40 MG VIAL IVP SCH (11:00)
[2022-03-29] MEDS ORDERED: Melatonin 3 MG TAB PO PRN (18:32)
[2022-03-30] MEDS: HYDROcodone/Acetaminophen 5/325 mg Tablet PO PRN (01:16)
[2022-03-30] MEDS: Promethazine 25 MG TAB PO PRN ×2 (01:16→08:57)
[2022-03-30] MEDS: Lactated Ringer's 1,000 ML IV SCH (04:05)
[2022-03-30] MEDS: Acetaminophen 500 MG TAB PO SCH ×2 (06:10→13:39)
[2022-03-30 06:38] LABS: Hemoglobin 8.7 g/dL (12.0-16.0); Mean Corpuscular HGB CONC 33.1 g/dL (32.0-36.0); Mean Corpuscular Hemoglobin 28.6 pg (27.0-31.0); Mean Corpuscular Volume 86.3 fL (78.0-98.0); Platelet Count 277 thou/uL (130-400); RBC Distribution Width 14.2 % (11.5-14.5); Red Blood Cell (RBC) Count 3.03 mill/uL (4.20-5.40); White Blood Cell (WBC) Count 8.4 thou/uL (4.8-10.8)
[2022-03-30 06:57] LABS: ALT (SGPT) 16 U/L (8-55); AST (SGOT) 21 U/L (5-34); Albumin 3.1 g/dL (3.5-5.0); Alkaline Phosphatase 85 U/L (40-110); Anion Gap 13 mmol/L (10-20); BUN (Urea Nitrogen) 10 mg/dL (7.0-18.7); Bilirubin, Total 0.3 mg/dL (0.2-1.2); Calc. Creatinine Clearance 148 mL/min (70-130); Calcium 8.5 mg/dL (7.8-10.44); Carbon Dioxide 20 mmol/L (22-29); Chloride 111 mmol/L (98-107); Estimated GFR 121; Globulin 2.8 g/dL (2.4-3.5); Glucose 78 mg/dL (70-105); Potassium 3.7 mmol/L (3.5-5.1); Protein, Total 5.9 g/dL (6.0-8.3); Sodium 140 mmol/L (136-145)
[2022-03-30 08:21] VITALS: BP 99/64; TEMP 98.8
[2022-03-30] MEDS ORDERED: HYDROcodone/Acetaminophen 5/325 mg Tablet PO PRN (08:59)
[2022-03-30] MEDS ORDERED: HYDROcodone/Acetaminophen 5/325 mg Tablet PO SCH ×2 (09:00→14:00)
[2022-03-30] MEDS ORDERED: Pantoprazole 40 MG VIAL IVP SCH (09:00)
[2022-03-30] MEDS ORDERED: Promethazine 25 MG TAB PO PRN (09:48)
== END 2022-03-30 15:16 | disposition home or self-care (01) | DRG 386 ==
LOC: ERS 09:51 → INTOOBSV 12:44 → ERHOLD 12:44 → T4-A 14:07 → OBSVTOIN 03-28 10:24
PROVIDERS: ADMIT Family Medicine; ATTEND Student in an Organized Health Care Education/Training Program
DX: K50.90 Crohn's disease, unspecified, without complications (principal); K86.1 Other chronic pancreatitis; N17.9 Acute kidney failure, unspecified; Z20.822 Contact with and (suspected) exposure to COVID-19; K52.9 Noninfective gastroenteritis and colitis, unspecified; E87.6 Hypokalemia; D64.9 Anemia, unspecified; F12.10 Cannabis abuse, uncomplicated; E86.0 Dehydration; Z90.49 Acquired absence of other specified parts of digestive tract; Z88.5 Allergy status to narcotic agent; Z98.51 Tubal ligation status; Z90.722 Acquired absence of ovaries, bilateral; Z83.3 Family history of diabetes mellitus; Z82.49 Family history of ischemic heart disease and other diseases of the circulatory system; Z87.442 Personal history of urinary calculi
CPT/HCPCS: 36415; 74177; 80053; 81003; 81015; 81025; 82274; 82550; 82728; 83540; 83550; 83605; 83690; 84145; 85025; 85027; 85652; 86140; 87015; 87040; 87086; 87206; 87324; 87328; 87329; 87449; 87505; 87804; 93005; 96361; 96365; 96375; 96376; C9113; G0378; J1885; J2405; J2543; J2550; J3010; J3370; J3490; J7120; Q0169; Q9967; U0003; U0005